=== PATIENT | female | born 1945 | race Caucasian/White ===

== ENCOUNTER 2019-08-27 10:38 | Inpatient (IN) | payer MEDICARE, MEDICAID ==
[~2019-08-27] VITALS: Ht 160 cm; Wt 104.3 kg
--- NOTE | 2019-08-27 11:50 | NUR ---
Patient was a direct admit. Vital signs obtained, placed on tele. 2 RN skin check completed. Pt. seen by Dr. Childers and Dr. Alan Wakefield. Med rec completed. Page PICC nurse to place PIV as nursing was unsuccessful at placing. Pt. resting comfortably with no complaints at this time.
--- NOTE | 2019-08-27 11:53 | NUR ---
Sent Dr. Childers a page: [id number] Margaret [place]. Patient was just directly admitted to floor. Melissa DAVIS [id number]
[2019-08-27] MEDS ORDERED: DULO-31 PO (13:20)
[2019-08-27] MEDS ORDERED: MELA10CA2 PO (13:20)
[2019-08-27] MEDS ORDERED: GABA300C PO (13:20)
[2019-08-27] MEDS ORDERED: LORA-660 PO (13:20)
[2019-08-27] MEDS ORDERED: ASPI81TA52 PO (13:20)
[2019-08-27] MEDS ORDERED: GLIP5TAB13 PO (13:20)
[2019-08-27] MEDS ORDERED: TOPI200T16 PO (13:20)
[2019-08-27] MEDS ORDERED: ENAL2.5T40 PO (13:20)
[2019-08-27] MEDS ORDERED: MELO-102 PO (13:20)
[2019-08-27] MEDS ORDERED: PRAZ2CAP2 PO (13:20)
[2019-08-27] MEDS ORDERED: LEVE750T66 PO (13:20)
[2019-08-27] MEDS ORDERED: POTA10TA19 PO (13:20)
[2019-08-27] MEDS ORDERED: HYDR-4383 PO (13:20)
[2019-08-27] MEDS ORDERED: FURO-150 PO (13:20)
[2019-08-27] MEDS ORDERED: ALEN10TA27 PO (13:20)
[2019-08-27] MEDS ORDERED: FENO48TA9 PO (13:20)
[2019-08-27] MEDS ORDERED: SIMV-42 PO (13:20)
[2019-08-27 13:23] VITALS: BP 103/58
[2019-08-27] MEDS ORDERED: NORMAL SALINE IV SCH (13:30)
[2019-08-27] MEDS ORDERED: CefTRIAXone 2gm/D5W 50ml 50 ML IV SCH (13:30)
[2019-08-27] MEDS ORDERED: CEFTRIAXONE IV SCH (13:30)
[2019-08-27] MEDS ORDERED: vancomycin/NS 1 GM ADD-VANTAGE 250 ML IV ONE ×2 (13:40→15:30)
[2019-08-27] MEDS ORDERED: acetaminophen 325mg tablet PO PRN ×2 (14:00)
[2019-08-27] MEDS ORDERED: magnesium 4gm in 100ml NS 100 ML IV PRN (14:00)
[2019-08-27] MEDS ORDERED: dextrose ORAL solution 15 GM/59 ML bottle PO PRN ×2 (14:00)
[2019-08-27] MEDS ORDERED: MESSAGE TO PHARMACY PO ONE (14:00)
[2019-08-27] MEDS ORDERED: diphenhydrAMINE 25mg capsule PO PRN (14:00)
[2019-08-27] MEDS ORDERED: potassium Cl 20 mEq SR tablet PO PRN ×2 (14:00)
[2019-08-27] MEDS ORDERED: magnesium hydroxide 30ml (MOM) UD suspension PO PRN (14:00)
[2019-08-27] MEDS ORDERED: morphine 2 MG/ML inj. syringe IV PRN ×2 (14:00)
[2019-08-27] MEDS ORDERED: bisacodyl 10mg suppository rectal RC PRN (14:00)
[2019-08-27] MEDS ORDERED: potassium CL 10mEq/100ml bag 100 ML IV PRN ×2 (14:00)
[2019-08-27] MEDS ORDERED: magnesium Cl slow-release 64mg tablet PO PRN (14:00)
[2019-08-27] MEDS ORDERED: dextrose 50%-water 50ml dispensing syringe IV PRN ×2 (14:00)
[2019-08-27] MEDS ORDERED: glucagon, human recombinant 1mg kit SUBCUT PRN (14:00)
[2019-08-27] MEDS ORDERED: mag hydrox/Alum hydrox/simeth 30ml oral suspension PO PRN (14:00)
[2019-08-27] MEDS ORDERED: magnesium 2GM in 50ml NS 50 ML IV PRN (14:00)
[2019-08-27] MEDS ORDERED: ondansetron/PF 4mg/2ml inj IV PRN (14:00)
[2019-08-27] MEDS ORDERED: HYDROcodone/acetaminophen 5mg/325mg tablet PO PRN (14:00)
[2019-08-27] MEDS ORDERED: acetaminophen 650mg rectal suppository RC PRN (14:00)
[2019-08-27] MEDS ORDERED: insulin Lispro (HumaLOG) vial - multi-dose SQ SCH (14:00)
--- NOTE | 2019-08-27 14:00 | NUR ---
Glucose was 68 in the chem panel, Pt. provided with lunch. Pt. had not eaten all day prior to admission. Pt. is asymptomatic. New orders for accu checks AC/HS.
[2019-08-27 14:28] LABS: BASOPHILS # (AUTO) 0.1 X10'3 (0-0.2); BASOPHILS % (AUTO) 0.9 % (0-1); EOSINOPHILS # (AUTO) 0.2 X10'3 (0-0.9); EOSINOPHILS % (AUTO) 4.2 % (0-6); HEMATOCRIT 32.8 % (35.0-45.0); HEMOGLOBIN 10.8 g/dl (12.0-16.0); LYMPHOCYTES # (AUTO) 1.8 X10'3 (1.1-4.8); LYMPHOCYTES % (AUTO) 31.3 % (21-51); MEAN CORPUSCULAR HEMOGLOBIN 31.2 PG (27.0-31.0); MEAN CORPUSCULAR VOLUME 94.5 FL (78-98); MEAN PLATELET VOLUME 7.5 FL (7.4-10.4); MONOCYTES # (AUTO) 0.6 X10'3 (0-0.9); MONOCYTES % (AUTO) 9.7 % (2-12); NEUTROPHILS # (AUTO) 3.1 X10'3 (1.8-7.7); NEUTROPHILS % (AUTO) 53.9 % (42-75); PLATELET COUNT 179 X10'3 (140-440); RED BLOOD COUNT 3.47 X10'6 (4.20-5.60); RED CELL DISTRIBUTION WIDTH 12.7 % (11.5-14.5); WHITE BLOOD COUNT 5.8 X10'3 (4.5-11.0)
[2019-08-27 14:30] LABS: HEMOGLOBIN A1C 5.8 % (4.5-6.2)
[2019-08-27 14:34] LABS: PARTIAL THROMBOPLASTIN TIME 31 SECONDS (22-32)
[2019-08-27] MEDS: normal saline 1000ml 1,000 ML IV SCH (14:43)
--- NOTE | 2019-08-27 14:43 | NUR ---
Blood cultures have been obtained, therefore the antibiotics have been started. Monitoring patient closely as she has several allergies to antibiotics.
[2019-08-27 14:46] LABS: ALANINE AMINOTRANSFERASE 14 U/L (12-78); ALBUMIN 3.5 G/DL (3.4-5.0); ALBUMIN/GLOBULIN RATIO 1.1 (1.1-1.5); ALKALINE PHOSPHATASE 40 IU/L (46-116); ANION GAP 6 (8-16); ASPARTATE AMINO TRANSFERASE 11 U/L (10-37); BILIRUBIN,TOTAL 0.3 MG/DL (0.1-1.0); BLOOD UREA NITROGEN 30 MG/DL (7-18); BUN/CREATININE RATIO 22.9 (6.6-38.0); CHLORIDE 108 MMOL/L (99-107); CREATININE 1.31 MG/DL (0.40-0.90); GLUCOSE 68 MG/DL (70-104); MAGNESIUM 2.1 MG/DL (1.5-2.4); PHOSPHORUS 4.5 MG/DL (2.3-4.5); POTASSIUM 3.8 MMOL/L (3.5-5.1); SODIUM 140 MMOL/L (135-145); TOTAL CARBON DIOXIDE 25.6 MMOL/L (24-32); TOTAL PROTEIN 6.7 G/DL (6.4-8.2); eGFR 40 ML/MIN
[2019-08-27 15:00] VITALS: BP 136/60
[2019-08-27 15:55] LABS: COLOR,URINE STRAW (Yellow); GLUCOSE, URINE NEGATIVE (Neg); KETONES,URINE NEGATIVE (Neg); LEUKOCYTE ESTERASE ,URINE SMALL (Neg); NITRITES, URINE NEGATIVE (Neg); OCCULT BLOOD,URINE NEGATIVE (Neg); PROTEIN,URINE NEGATIVE (Neg); UROBILINOGEN,URINE 0.2 E.U/dL (0.2-1.0)
[2019-08-27 15:56] LABS: UA COLLECTION TYPE CLN CATCH MIDSTREAM
[2019-08-27 16:08] LABS: CLARITY,URINE SLIGHTLY CLOUDY (Clear); SQUAMOUS EPITHELIAL CELL,UR MODERATE /LPF (FEW)
[2019-08-27 16:09] LABS: MUCUS STRANDS FEW /LPF (Neg); TRANSITIONAL EPI CELLS,URINE FEW /HPF
[2019-08-27 16:10] LABS: BACTERIA,URINE 4+ /HPF (Neg); RBC,URINE NONE SEEN /HPF (0-2)
[2019-08-27 18:00] VITALS: BP 134/67
--- NOTE | 2019-08-27 18:28 | NUR ---
Problems reprioritized. Patient report given, questions answered & plan of care reviewed with lu DAVIS. Pt. is eating dinner, thanked staff for the care provided.
--- NOTE | 2019-08-27 18:46 | NUR ---
Patient in room PCU 3025. I have received report from Eunice DAVIS and had the opportunity to ask questions and assume patient care.
[2019-08-27] MEDS: K and/or MAG REPLACEMENT MC SCH (20:00)
[2019-08-27] MEDS: topiramate 100mg tablet PO SCH (20:54)
[2019-08-27] MEDS: levetiracetam 250mg tablet PO SCH (20:55)
[2019-08-27] MEDS: gabapentin 300mg capsule PO SCH (20:55)
[2019-08-27] MEDS: atorvastatin 10mg tablet PO SCH (20:55)
[2019-08-27] MEDS: prazosin 1mg capsule PO SCH (20:55)
[2019-08-27] MEDS: Melatonin 3mg tablet PO SCH (20:56)
[2019-08-27] MEDS: heparin, porcine 5000 units/ml vial SQ SCH (20:56)
[2019-08-27] MEDS: insulin glargine (Lantus) pen - multi-dose SQ SCH (21:00)
[2019-08-27] MEDS: HYDROcodone/acetaminophen 10/325mg tab PO PRN (21:12)
[2019-08-27 22:00] VITALS: BP 119/52
[2019-08-28 02:00] VITALS: BP 107/45
[2019-08-28 05:29] LABS: BASOPHILS # (AUTO) 0.1 X10'3 (0-0.2); BASOPHILS % (AUTO) 1.1 % (0-1); EOSINOPHILS # (AUTO) 0.3 X10'3 (0-0.9); EOSINOPHILS % (AUTO) 5.6 % (0-6); HEMATOCRIT 30.2 % (35.0-45.0); HEMOGLOBIN 10.1 g/dl (12.0-16.0); LYMPHOCYTES # (AUTO) 1.7 X10'3 (1.1-4.8); LYMPHOCYTES % (AUTO) 34.8 % (21-51); MEAN CORPUSCULAR HEMOGLOBIN 30.9 PG (27.0-31.0); MEAN CORPUSCULAR HGB CONC 33.4 g/dL (33.0-36.5); MEAN CORPUSCULAR VOLUME 92.6 FL (78-98); MEAN PLATELET VOLUME 7.5 FL (7.4-10.4); MONOCYTES # (AUTO) 0.5 X10'3 (0-0.9); MONOCYTES % (AUTO) 10.7 % (2-12); NEUTROPHILS # (AUTO) 2.3 X10'3 (1.8-7.7); NEUTROPHILS % (AUTO) 47.8 % (42-75); PLATELET COUNT 175 X10'3 (140-440); RED BLOOD COUNT 3.26 X10'6 (4.20-5.60); RED CELL DISTRIBUTION WIDTH 13.1 % (11.5-14.5); WHITE BLOOD COUNT 4.9 X10'3 (4.5-11.0)
[2019-08-28 05:50] LABS: ALANINE AMINOTRANSFERASE 13 U/L (12-78); ALBUMIN 3.1 G/DL (3.4-5.0); ALBUMIN/GLOBULIN RATIO 1.1 (1.1-1.5); ALKALINE PHOSPHATASE 39 IU/L (46-116); ANION GAP 8 (8-16); ASPARTATE AMINO TRANSFERASE 12 U/L (10-37); BILIRUBIN,TOTAL 0.2 MG/DL (0.1-1.0); CALCIUM 8.9 MG/DL (8.5-10.1); CHLORIDE 113 MMOL/L (99-107); CHOL/HDL RATIO 2.7 (0.00-4.99); CHOLESTEROL 138 MG/DL (0-200); CREATININE 1.28 MG/DL (0.40-0.90); GLUCOSE 97 MG/DL (70-104); HDL CHOLESTEROL 52 MG/DL (35-60); LDL CHOLESTEROL 55 MG/DL (50-100); MAGNESIUM 2.3 MG/DL (1.5-2.4); PHOSPHORUS 4.7 MG/DL (2.3-4.5); POTASSIUM 3.9 MMOL/L (3.5-5.1); SODIUM 145 MMOL/L (135-145); TOTAL CARBON DIOXIDE 24.5 MMOL/L (24-32); TOTAL PROTEIN 5.9 G/DL (6.4-8.2); TRIGLYCERIDES 150 MG/DL (20-135); eGFR 41 ML/MIN
[2019-08-28 06:06] LABS: BLOOD UREA NITROGEN 29 MG/DL (7-18); BUN/CREATININE RATIO 22.7 (6.6-38.0)
--- NOTE | 2019-08-28 06:14 | NUR ---
Patient in room PCU 3025. I have received report from RYAN Roberts and had the opportunity to ask questions and assume patient care.
--- NOTE | 2019-08-28 06:15 | NUR ---
Problems reprioritized. Patient report given, questions answered & plan of care reviewed with Shu DAVIS.
[2019-08-28 07:00] VITALS: BP 118/55
[2019-08-28] MEDS: heparin, porcine 5000 units/ml vial SQ SCH ×2 (07:58→20:39)
[2019-08-28] MEDS: CefTRIAXone inj 2,000 MG in normal saline 100ml IV soln 100 ML IV SCH (07:58)
[2019-08-28] MEDS: fenofibrate 48mg tablet PO SCH (07:59)
[2019-08-28] MEDS: duloxetine 30mg CAPSULE.DR PO SCH (07:59)
[2019-08-28] MEDS: loratadine 10mg tablet PO SCH (07:59)
[2019-08-28] MEDS: aspirin 81mg tablet.DR PO SCH (07:59)
[2019-08-28] MEDS: lisinopril 5mg tablet PO SCH (07:59)
[2019-08-28] MEDS: levetiracetam 250mg tablet PO SCH ×2 (07:59→20:37)
[2019-08-28] MEDS ORDERED: non-formulary drug (Alendronate Sodium 1 TAB) PO SCH (08:00)
[2019-08-28] MEDS ORDERED: CefTRIAXone 2gm/D5W 50ml 50 ML IV SCH (08:00)
[2019-08-28] MEDS: topiramate 100mg tablet PO SCH ×2 (08:01→20:36)
[2019-08-28] MEDS: furosemide 20MG tablet PO SCH (08:01)
[2019-08-28] MEDS: K and/or MAG REPLACEMENT MC SCH ×2 (08:01→20:40)
--- NOTE | 2019-08-28 10:11 | NUR ---
Patient in room PCU 3025. I have received report from RYAN Ireland and had the opportunity to ask questions and assume patient care.
--- NOTE | 2019-08-28 10:34 | NUR ---
Problems reprioritized. Patient report given, questions answered & plan of care reviewed with RYAN Mae.
[2019-08-28 11:00] VITALS: BP 123/44
[2019-08-28] MEDS: normal saline 1000ml 1,000 ML IV SCH (13:19)
[2019-08-28] MEDS: HYDROcodone/acetaminophen 10/325mg tab PO PRN (13:19)
[2019-08-28 15:00] VITALS: BP 128/55
[2019-08-28] MEDS: VANCOMYCIN 1,500MG inj. 1,500 MG in normal saline 500ml IV soln 500 ML IV SCH (16:18)
[2019-08-28 18:00] VITALS: BP 133/57
--- NOTE | 2019-08-28 18:30 | NUR ---
Patient in room PCU 3025. I have received report from Carmelita DAVIS and had the opportunity to ask questions and assume patient care.
--- NOTE | 2019-08-28 18:52 | NUR ---
Problems reprioritized. Patient report given, questions answered & plan of care reviewed with RYAN Roberts.
[2019-08-28] MEDS: gabapentin 300mg capsule PO SCH (20:36)
[2019-08-28] MEDS: prazosin 1mg capsule PO SCH (20:36)
[2019-08-28] MEDS: atorvastatin 10mg tablet PO SCH (20:36)
[2019-08-28] MEDS: Melatonin 3mg tablet PO SCH (20:37)
[2019-08-28] MEDS: insulin glargine (Lantus) pen - multi-dose SQ SCH (21:00)
[2019-08-28 22:00] VITALS: BP 114/50
[2019-08-29 02:00] VITALS: BP 123/54
[2019-08-29] MEDS: HYDROcodone/acetaminophen 10/325mg tab PO PRN ×2 (02:38→22:50)
[2019-08-29] MEDS: normal saline 1000ml 1,000 ML IV SCH ×2 (05:34→10:40)
[2019-08-29 05:39] LABS: BASOPHILS # (AUTO) 0.1 X10'3 (0-0.2); EOSINOPHILS # (AUTO) 0.2 X10'3 (0-0.9); EOSINOPHILS % (AUTO) 4.8 % (0-6); HEMATOCRIT 29.8 % (35.0-45.0); HEMOGLOBIN 9.9 g/dl (12.0-16.0); LYMPHOCYTES # (AUTO) 1.5 X10'3 (1.1-4.8); LYMPHOCYTES % (AUTO) 29.9 % (21-51); MEAN CORPUSCULAR HEMOGLOBIN 31.1 PG (27.0-31.0); MEAN CORPUSCULAR HGB CONC 33.3 g/dL (33.0-36.5); MEAN CORPUSCULAR VOLUME 93.4 FL (78-98); MEAN PLATELET VOLUME 7.7 FL (7.4-10.4); MONOCYTES # (AUTO) 0.6 X10'3 (0-0.9); MONOCYTES % (AUTO) 11.3 % (2-12); NEUTROPHILS # (AUTO) 2.7 X10'3 (1.8-7.7); PLATELET COUNT 159 X10'3 (140-440); RED BLOOD COUNT 3.19 X10'6 (4.20-5.60); RED CELL DISTRIBUTION WIDTH 12.8 % (11.5-14.5); WHITE BLOOD COUNT 5.2 X10'3 (4.5-11.0)
[2019-08-29 05:59] LABS: ALANINE AMINOTRANSFERASE 12 U/L (12-78); ALBUMIN 3.1 G/DL (3.4-5.0); ALBUMIN/GLOBULIN RATIO 1.1 (1.1-1.5); ALKALINE PHOSPHATASE 33 IU/L (46-116); ANION GAP 8 (8-16); ASPARTATE AMINO TRANSFERASE 18 U/L (10-37); BILIRUBIN,TOTAL 0.2 MG/DL (0.1-1.0); BLOOD UREA NITROGEN 26 MG/DL (7-18); CALCIUM 8.7 MG/DL (8.5-10.1); CHLORIDE 111 MMOL/L (99-107); CREATININE 1.13 MG/DL (0.40-0.90); GLUCOSE 97 MG/DL (70-104); MAGNESIUM 2.2 MG/DL (1.5-2.4); PHOSPHORUS 3.9 MG/DL (2.3-4.5); POTASSIUM 3.7 MMOL/L (3.5-5.1); SODIUM 143 MMOL/L (135-145); TOTAL CARBON DIOXIDE 24.5 MMOL/L (24-32); eGFR 47 ML/MIN
--- NOTE | 2019-08-29 06:27 | NUR ---
Patient in room PCU 3025. I have received report from RYAN Fuentes and had the opportunity to ask questions and assume patient care. Patient asleep in bed and in no acute distress.
--- NOTE | 2019-08-29 06:30 | NUR ---
Problems reprioritized. Patient report given, questions answered & plan of care reviewed with Nicolette DAVIS.
[2019-08-29 07:00] VITALS: BP 103/59
[2019-08-29] MEDS: K and/or MAG REPLACEMENT MC SCH ×2 (08:00→20:00)
[2019-08-29] MEDS: CefTRIAXone inj 2,000 MG in normal saline 100ml IV soln 100 ML IV SCH (08:14)
[2019-08-29] MEDS: levetiracetam 250mg tablet PO SCH ×2 (08:15→20:21)
[2019-08-29] MEDS: duloxetine 30mg CAPSULE.DR PO SCH (08:15)
[2019-08-29] MEDS: lisinopril 5mg tablet PO SCH (08:16)
[2019-08-29] MEDS: topiramate 100mg tablet PO SCH ×2 (08:16→20:21)
[2019-08-29] MEDS: loratadine 10mg tablet PO SCH (08:17)
[2019-08-29] MEDS: fenofibrate 48mg tablet PO SCH (08:17)
[2019-08-29] MEDS: aspirin 81mg tablet.DR PO SCH (08:17)
[2019-08-29] MEDS: furosemide 20MG tablet PO SCH (08:18)
[2019-08-29] MEDS: heparin, porcine 5000 units/ml vial SQ SCH ×2 (08:19→20:22)
[2019-08-29 11:00] VITALS: BP 129/69
[2019-08-29 15:00] VITALS: BP 114/51
[2019-08-29] MEDS: VANCOMYCIN 1,500MG inj. 1,500 MG in normal saline 500ml IV soln 500 ML IV SCH (16:20)
[2019-08-29 18:00] VITALS: BP 130/57
--- NOTE | 2019-08-29 18:14 | NUR ---
Problems reprioritized. Patient report given, questions answered & plan of care reviewed with RYAN Mcgarry. Patient stable at transfer of care.
--- NOTE | 2019-08-29 18:30 | NUR ---
Patient in room PCU 3025. I have received report from Nicolette DAVIS and had the opportunity to ask questions and assume patient care.
[2019-08-29] MEDS: gabapentin 300mg capsule PO SCH (20:20)
[2019-08-29] MEDS: prazosin 1mg capsule PO SCH (20:21)
[2019-08-29] MEDS: atorvastatin 10mg tablet PO SCH (20:21)
[2019-08-29] MEDS: Melatonin 3mg tablet PO SCH (20:21)
[2019-08-29] MEDS: insulin glargine (Lantus) pen - multi-dose SQ SCH (21:00)
[2019-08-29 22:00] VITALS: BP 111/51
[2019-08-30 02:00] VITALS: BP 98/59
[2019-08-30 06:00] VITALS: BP 106/54
--- NOTE | 2019-08-30 06:05 | NUR ---
Patient in room PCU 3025. I have received report from Malgorzata DAVIS and had the opportunity to ask questions and assume patient care.
[2019-08-30 06:07] LABS: BASOPHILS # (AUTO) 0.1 X10'3 (0-0.2); BASOPHILS % (AUTO) 1.1 % (0-1); EOSINOPHILS # (AUTO) 0.2 X10'3 (0-0.9); EOSINOPHILS % (AUTO) 4.9 % (0-6); HEMATOCRIT 29.7 % (35.0-45.0); HEMOGLOBIN 9.8 g/dl (12.0-16.0); LYMPHOCYTES # (AUTO) 1.8 X10'3 (1.1-4.8); LYMPHOCYTES % (AUTO) 38.4 % (21-51); MEAN CORPUSCULAR HEMOGLOBIN 31.1 PG (27.0-31.0); MEAN CORPUSCULAR HGB CONC 33.1 g/dL (33.0-36.5); MEAN CORPUSCULAR VOLUME 94.1 FL (78-98); MEAN PLATELET VOLUME 7.6 FL (7.4-10.4); MONOCYTES # (AUTO) 0.6 X10'3 (0-0.9); MONOCYTES % (AUTO) 11.8 % (2-12); NEUTROPHILS # (AUTO) 2.1 X10'3 (1.8-7.7); NEUTROPHILS % (AUTO) 43.8 % (42-75); PLATELET COUNT 156 X10'3 (140-440); RED BLOOD COUNT 3.15 X10'6 (4.20-5.60); WHITE BLOOD COUNT 4.7 X10'3 (4.5-11.0)
[2019-08-30 06:17] LABS: ALANINE AMINOTRANSFERASE 14 U/L (12-78); ALBUMIN/GLOBULIN RATIO 1.1 (1.1-1.5); ALKALINE PHOSPHATASE 30 IU/L (46-116); ANION GAP 10 (8-16); ASPARTATE AMINO TRANSFERASE 23 U/L (10-37); BILIRUBIN,TOTAL 0.3 MG/DL (0.1-1.0); BLOOD UREA NITROGEN 20 MG/DL (7-18); BUN/CREATININE RATIO 18.2 (6.6-38.0); CALCIUM 8.7 MG/DL (8.5-10.1); CHLORIDE 111 MMOL/L (99-107); GLUCOSE 86 MG/DL (70-104); MAGNESIUM 2.2 MG/DL (1.5-2.4); PHOSPHORUS 3.8 MG/DL (2.3-4.5); POTASSIUM 3.6 MMOL/L (3.5-5.1); SODIUM 145 MMOL/L (135-145); TOTAL CARBON DIOXIDE 23.8 MMOL/L (24-32); TOTAL PROTEIN 5.8 G/DL (6.4-8.2); eGFR 49 ML/MIN
--- NOTE | 2019-08-30 06:23 | NUR ---
Problems reprioritized. Patient report given, questions answered & plan of care reviewed with Saad DAVIS.
[2019-08-30] MEDS: K and/or MAG REPLACEMENT MC SCH ×2 (08:00→20:00)
[2019-08-30] MEDS: CefTRIAXone inj 2,000 MG in normal saline 100ml IV soln 100 ML IV SCH (08:22)
[2019-08-30] MEDS: duloxetine 30mg CAPSULE.DR PO SCH (08:23)
[2019-08-30] MEDS: topiramate 100mg tablet PO SCH ×2 (08:23→19:57)
[2019-08-30] MEDS: lisinopril 5mg tablet PO SCH (08:23)
[2019-08-30] MEDS: loratadine 10mg tablet PO SCH (08:23)
[2019-08-30] MEDS: heparin, porcine 5000 units/ml vial SQ SCH ×2 (08:23→19:58)
[2019-08-30] MEDS: levetiracetam 250mg tablet PO SCH ×2 (08:24→19:57)
[2019-08-30] MEDS: fenofibrate 48mg tablet PO SCH (08:24)
[2019-08-30] MEDS: furosemide 20MG tablet PO SCH (08:25)
[2019-08-30] MEDS: aspirin 81mg tablet.DR PO SCH (08:25)
[2019-08-30 15:00] VITALS: BP 128/60
--- NOTE | 2019-08-30 15:15 | NUR ---
PICC insertion in right upper arm (Basilic), REF [id number], LOT [id number], Exp. 05/13/20
[2019-08-30] MEDS: VANCOMYCIN 1,500MG inj. 1,500 MG in normal saline 250ml IV soln 300 ML IV SCH (16:22)
[2019-08-30 18:00] VITALS: BP 157/64
--- NOTE | 2019-08-30 18:30 | NUR ---
Problems reprioritized. Patient report given, questions answered & plan of care reviewed with Dalia DAVIS.
[2019-08-30] MEDS: atorvastatin 10mg tablet PO SCH (20:04)
[2019-08-30] MEDS: prazosin 1mg capsule PO SCH (20:05)
[2019-08-30] MEDS: Melatonin 3mg tablet PO SCH (20:05)
[2019-08-30] MEDS: gabapentin 300mg capsule PO SCH (20:05)
[2019-08-30] MEDS: insulin glargine (Lantus) pen - multi-dose SQ SCH (21:00)
[2019-08-30] MEDS: HYDROcodone/acetaminophen 10/325mg tab PO PRN (21:42)
[2019-08-30] MEDS: normal saline 1000ml 1,000 ML IV SCH (21:56)
[2019-08-30 22:00] VITALS: BP 108/50
[2019-08-31 02:00] VITALS: BP 111/53
[2019-08-31 06:00] VITALS: BP 126/62
--- NOTE | 2019-08-31 06:19 | NUR ---
Problems reprioritized. Patient report given, questions answered & plan of care reviewed with RYAN Arevalo.
--- NOTE | 2019-08-31 06:20 | NUR ---
Patient in room PCU 3025. I have received report from Dalia DAVIS and had the opportunity to ask questions and assume patient care.
[2019-08-31] MEDS: fenofibrate 48mg tablet PO SCH (07:18)
[2019-08-31] MEDS: loratadine 10mg tablet PO SCH (07:18)
[2019-08-31] MEDS: CefTRIAXone inj 2,000 MG in normal saline 100ml IV soln 100 ML IV SCH (07:18)
[2019-08-31] MEDS: lisinopril 5mg tablet PO SCH (07:18)
[2019-08-31] MEDS: duloxetine 30mg CAPSULE.DR PO SCH (07:18)
[2019-08-31] MEDS: furosemide 20MG tablet PO SCH (07:18)
[2019-08-31] MEDS: topiramate 100mg tablet PO SCH (07:18)
[2019-08-31] MEDS: levetiracetam 250mg tablet PO SCH (07:18)
[2019-08-31] MEDS: aspirin 81mg tablet.DR PO SCH (07:18)
[2019-08-31] MEDS: heparin, porcine 5000 units/ml vial SQ SCH (07:19)
[2019-08-31 07:48] LABS: BASOPHILS # (AUTO) 0.1 X10'3 (0-0.2); BASOPHILS % (AUTO) 1.2 % (0-1); EOSINOPHILS # (AUTO) 0.2 X10'3 (0-0.9); EOSINOPHILS % (AUTO) 4.7 % (0-6); HEMATOCRIT 30.5 % (35.0-45.0); HEMOGLOBIN 10.2 g/dl (12.0-16.0); LYMPHOCYTES # (AUTO) 1.6 X10'3 (1.1-4.8); LYMPHOCYTES % (AUTO) 34.3 % (21-51); MEAN CORPUSCULAR HEMOGLOBIN 31.5 PG (27.0-31.0); MEAN CORPUSCULAR HGB CONC 33.5 g/dL (33.0-36.5); MEAN CORPUSCULAR VOLUME 93.9 FL (78-98); MEAN PLATELET VOLUME 7.6 FL (7.4-10.4); MONOCYTES # (AUTO) 0.5 X10'3 (0-0.9); MONOCYTES % (AUTO) 11.3 % (2-12); NEUTROPHILS # (AUTO) 2.2 X10'3 (1.8-7.7); NEUTROPHILS % (AUTO) 48.5 % (42-75); PLATELET COUNT 167 X10'3 (140-440); RED BLOOD COUNT 3.25 X10'6 (4.20-5.60); RED CELL DISTRIBUTION WIDTH 12.9 % (11.5-14.5); WHITE BLOOD COUNT 4.6 X10'3 (4.5-11.0)
[2019-08-31 07:58] LABS: ALANINE AMINOTRANSFERASE 20 U/L (12-78); ALBUMIN 3.1 G/DL (3.4-5.0); ALKALINE PHOSPHATASE 36 IU/L (46-116); ANION GAP 9 (8-16); ASPARTATE AMINO TRANSFERASE 20 U/L (10-37); BILIRUBIN,TOTAL 0.3 MG/DL (0.1-1.0); BLOOD UREA NITROGEN 21 MG/DL (7-18); BUN/CREATININE RATIO 19.4 (6.6-38.0); CALCIUM 8.6 MG/DL (8.5-10.1); CHLORIDE 111 MMOL/L (99-107); CREATININE 1.08 MG/DL (0.40-0.90); GLUCOSE 104 MG/DL (70-104); MAGNESIUM 2.2 MG/DL (1.5-2.4); POTASSIUM 3.7 MMOL/L (3.5-5.1); SODIUM 143 MMOL/L (135-145); TOTAL CARBON DIOXIDE 23.2 MMOL/L (24-32); TOTAL PROTEIN 6.1 G/DL (6.4-8.2); eGFR 50 ML/MIN
[2019-08-31] MEDS: K and/or MAG REPLACEMENT MC SCH (08:00)
[2019-08-31 11:00] VITALS: BP 124/59
--- NOTE | 2019-08-31 12:55 | NUR ---
pt is stable for discharge per md orders, discharge instructions reviewed w/ pt all questions answered, no new med prescriptions on discharge, tele monitor removed and returned, piv dc'ed, cannula intact dry dressing placed, pt will be discharging to home with sister after [facility] does teaching w/ pt and family member, scheduled to do training at 1400.
[2019-08-31] MEDS ORDERED: VANCOMYCIN LEVEL IV ONE (15:30)
[2019-08-31] MEDS: VANCOMYCIN 1,500MG inj. 1,500 MG in normal saline 250ml IV soln 300 ML IV SCH (16:00)
--- NOTE | 2019-08-31 16:26 | NUR ---
1600 vancomycin administered by [facility] infusion nurse w/ sister at bedside
--- NOTE | 2019-08-31 17:30 | NUR ---
infusion training completed from [facility], pt discharges to home w/ sister in private vehicle at 1730, all belongings w/ pt at time of discharge
[2019-08-31] MEDS ORDERED: lactobacillus rhamnosus 10,000 MMU CELLS/CAPSULE PO SCH (20:00)
--- NOTE | 2019-09-03 08:52 | NUR ---
Case management DC follow up: LM/VM re post DC status, questions, concerns
== END 2019-08-31 17:25 | disposition home health service (06) | DRG 307 ==
LOC: UNDOADMIN 11:18 → PCU 3S 11:18
PROVIDERS: ADMIT Family Medicine; ATTEND Family Medicine
PROC: 02HV33Z Insertion of Infusion Device into Superior Vena Cava, Percutaneous Approach (ICD-10-PCS; principal; 2019-08-30)
PROC: 4A02X4A Measurement of Cardiac Electrical Activity, Guidance, External Approach (ICD-10-PCS; 2019-08-30)
DX: I05.9 Rheumatic mitral valve disease, unspecified (principal); N39.0 Urinary tract infection, site not specified; Z68.41 Body mass index [BMI] 40.0-44.9, adult; E11.9 Type 2 diabetes mellitus without complications; I10 Essential (primary) hypertension; E78.1 Pure hyperglyceridemia; F41.9 Anxiety disorder, unspecified; F32.9 Major depressive disorder, single episode, unspecified; N18.9 Chronic kidney disease, unspecified; E04.1 Nontoxic single thyroid nodule; M81.0 Age-related osteoporosis without current pathological fracture; E78.5 Hyperlipidemia, unspecified; E66.9 Obesity, unspecified; B96.20 Unspecified Escherichia coli [E. coli] as the cause of diseases classified elsewhere; M19.90 Unspecified osteoarthritis, unspecified site; G40.909 Epilepsy, unspecified, not intractable, without status epilepticus; G89.29 Other chronic pain; G47.00 Insomnia, unspecified; Z79.83 Long term (current) use of bisphosphonates; Z79.899 Other long term (current) drug therapy; Z82.49 Family history of ischemic heart disease and other diseases of the circulatory system; Z87.891 Personal history of nicotine dependence
CPT/HCPCS: 36415; 36573; 71045; 76937; 80053; 80061; 80202; 81001; 82948; 83036; 83735; 83880; 84100; 84443; 85025; 85610; 85730; 86622; 86638; 87040; 87077; 87081; 87088; 87186; G0378; J0696; J1644; J1815; J2405; J3370; J7030; J7040; J7050

== ENCOUNTER 2019-12-26 14:30 | Outpatient (CLI) | payer MEDICARE, MEDICAID ==
[~2019-12-26 14:30] MED LIST: ALEN10TA27 PO; ASPI81TA52 PO; DULO-31 PO; ENAL2.5T40 PO; FENO48TA9 PO; FURO-150 PO; GABA300C PO; GLIP5TAB13 PO; HYDR-4383 PO; LEVE750T66 PO; LORA-660 PO; MELA10CA2 PO; POTA10TA19 PO; PRAZ2CAP2 PO; SIMV-42 PO; TOPI200T16 PO
== END 2019-12-26 23:59 | disposition home or self-care (01) ==
LOC: CARD DIAG 14:30
PROVIDERS: ATTEND Internal Medicine Cardiovascular Disease
DX: I08.8 Other rheumatic multiple valve diseases (principal); I34.0 Nonrheumatic mitral (valve) insufficiency
CPT/HCPCS: 93306

== ENCOUNTER 2022-11-01 07:30 | Inpatient (IN) | payer MEDICARE, MEDICAID ==
[2022-10-25 14:45] LABS: BASOPHILS # (AUTO) 0.1 X10'3 (0-0.2); BASOPHILS % (AUTO) 0.9 % (0-1); EOSINOPHILS # (AUTO) 0.3 X10'3 (0-0.9); EOSINOPHILS % (AUTO) 4.5 % (0-6); LYMPHOCYTES # (AUTO) 1.4 X10'3 (1.1-4.8); LYMPHOCYTES % (AUTO) 23.2 % (21-51); MEAN CORPUSCULAR HEMOGLOBIN 30.2 PG (27.0-31.0); MEAN CORPUSCULAR HGB CONC 32.9 g/dL (33.0-36.5); MEAN CORPUSCULAR VOLUME 91.9 FL (78-98); MEAN PLATELET VOLUME 7.2 FL (7.4-10.4); MONOCYTES # (AUTO) 0.6 X10'3 (0-0.9); MONOCYTES % (AUTO) 10.2 % (2-12); NEUTROPHILS # (AUTO) 3.8 X10'3 (1.8-7.7); NEUTROPHILS % (AUTO) 61.2 % (42-75); PRE OP HEMATOCRIT 33.6 % (35.0-45.0); PRE OP HEMOGLOBIN 11.1 g/dL (12.0-16.0); PRE OP PLATELET COUNT 183 X10'3 (140-440); PRE OP WHITE BLOOD COUNT 6.2 10'3 (4.8-10.8); RED BLOOD COUNT 3.66 X10'6 (4.20-5.60); RED CELL DISTRIBUTION WIDTH 14.3 % (11.5-14.5)
[2022-10-25 14:51] LABS: ALBUMIN 3.4 G/DL (3.4-5.0); ALBUMIN/GLOBULIN RATIO 1.1 (1.1-1.5); ALKALINE PHOSPHATASE 76 IU/L (46-116); BLOOD UREA NITROGEN 21 MG/DL (7-18); BUN/CREATININE RATIO 21.9 (10.0-20.0); CALCIUM 8.9 MG/DL (8.5-10.1); CHLORIDE 105 MMOL/L (99-107); CREATININE 0.96 MG/DL (0.40-0.90); PRE OP ALT 12 U/L (30-65); PRE OP ANION GAP 8 (8-16); PRE OP BILIRUB, TOTAL 0.2 MG/DL (0.0-1.0); PRE OP GLUCOSE 122 MG/DL (70-104); PRE OP POTASSIUM 3.9 MMOL/L (3.4-5.1); PRE OP SODIUM 138 MMOL/L (135-145); TOTAL CARBON DIOXIDE 25.2 MMOL/L (24-32); TOTAL PROTEIN 6.5 G/DL (6.4-8.2); eGFR 57 ML/MIN
[2022-10-25 15:15] LABS: PRE OP AST 10 U/L (10-37)
[~2022-11-01] VITALS: Ht 160 cm; Wt 98.0 kg
[~2022-11-01 07:30] MED LIST changes: -ALEN10TA27 PO; +CARV3.122 PO; +CHOL200074 PO; -FENO48TA9 PO; +FLEC50TA28 PO; -FURO-150 PO; -GABA300C PO; -GLIP5TAB13 PO; -HYDR-4383 PO; +LORA-657 PO; -LORA-660 PO; -MELA10CA2 PO; +MELO-100 PO; -POTA10TA19 PO; -PRAZ2CAP2 PO; -SIMV-42 PO
[2022-11-02] MEDS ORDERED: GABA-535 PO (10:47)
[2022-11-03] VITALS (26 sets, daily range): BP systolic 138–169; BP diastolic 60–89; PULSE 63–88; RESP 12–24; TEMP 98.2–100.2; O2SAT 90–99
[2022-11-03] MEDS ORDERED: ringers solution, lacted 1,000 ML IV SCH ×2 (05:00→07:20)
[2022-11-03] MEDS ORDERED: ceFOXitin 2GM-NS 100mL ADDvant 100 ML IV ONE (05:30)
[2022-11-03] MEDS ORDERED: DOCUMENT DATE & TIME OF BETA-BLOCKER PO ONE (05:30)
[2022-11-03] MEDS ORDERED: famotidine 20mg tablet PO ONE (05:30)
[2022-11-03] MEDS ORDERED: BUPIVAcaine/PF 2.5 mg/ml (0.25%) 30ml vial ONE ×2 (07:07→08:09)
[2022-11-03] MEDS ORDERED: LIDOcaine 1% (10mg/ml)w/preservative inj. 20ml MDV ONE ×2 (07:07→08:09)
[2022-11-03] MEDS ORDERED: midazolam 1 mg/ML 2ml injection ONE (07:14)
[2022-11-03] MEDS ORDERED: fentaNYL /PF 50mcg/ml 5ml ampule ONE (07:14)
[2022-11-03] MEDS ORDERED: propofol inj 20 ML IV ONE (07:15)
[2022-11-03] MEDS ORDERED: rocuronium 10mg/ml inj IV ONE ×2 (07:15→08:41)
[2022-11-03] MEDS ORDERED: ondansetron/PF 4mg/2ml inj ONE (07:15)
[2022-11-03] MEDS ORDERED: propofol inj 0 ML IV ONE (07:15)
[2022-11-03] MEDS ORDERED: LIDOcaine 2% (20mg/ml) 5ml vial ONE (07:15)
[2022-11-03] MEDS ORDERED: dexamethasone sod phosphate 4mg/ml inj. ONE (07:15)
[2022-11-03] MEDS ORDERED: hydrALAZINE 20mg/ml inj. IV PRN (07:20)
[2022-11-03] MEDS ORDERED: ondansetron/PF 4mg/2ml inj IV PRN (07:20)
[2022-11-03] MEDS ORDERED: labetalol 20mg/4ml (5mg/ml) syringe IV PRN (07:20)
[2022-11-03] MEDS ORDERED: fentaNYL/PF 50MCG/1 ML 2ML syringe IV PRN ×2 (07:20)
[2022-11-03] MEDS ORDERED: morphine 4 MG/ML inj SYRINge IV PRN (07:20)
[2022-11-03] MEDS ORDERED: morphine 2 MG/ML inj. syringe IV PRN (07:20)
[2022-11-03] MEDS ORDERED: desflurane 240ml liquid inh. IH ONE (07:37)
[2022-11-03] MEDS ORDERED: LIDOcaine-PF 1% 20mL vial 20 ML VIAL IJ ONE (08:31)
[2022-11-03] MEDS ORDERED: BUPIVACAINE liposomal/PF 13.3 MG/ML vial IM ONE (08:49)
[2022-11-03] MEDS ORDERED: hydrALAZINE 20mg/ml inj. IV ONE (08:56)
[2022-11-03] MEDS ORDERED: INDOCYANINE GREEN 25 MG/10 ML VIAL IV ONE (09:22)
[2022-11-03] MEDS ORDERED: sugammadex 200mg/2ml injection IV ONE (09:59)
[2022-11-03] MEDS ORDERED: fentaNYL/PF 50MCG/1 ML 2ML syringe ONE (09:59)
--- NOTE | 2022-11-03 11:11 | NUR ---
Received from OR via HOSPITAL BED, accompanied by Anesthesiologist and report given by CHRISTINA Anesthesiologist. PATIENT WAKING UP, NO S/S OF PAIN, V/S WNL, SCD ON , PIV 20G RIGHT HAND, ISLAND DRESSING AND BANDAID LAPS SITES CLOSED C/D/I TO ABDOMEN. CARLIN CATHETER DRAINING CLEAR YELLOW URINE. Addendum: 11/03/22 at 1129 by Donovan Jernigan RN Amended: Links added.
[2022-11-03] MEDS: normal saline 1000ml 1,000 ML IV SCH (11:40)
[2022-11-03] MEDS: ringers solution, lacted 1,000 ML IV SCH (11:40)
[2022-11-03] MEDS ORDERED: naloxone 0.4 mg/ml inj IV PRN (11:40)
[2022-11-03] MEDS ORDERED: LEVE750T PO (11:57)
--- NOTE | 2022-11-03 12:27 | NUR ---
Received report on RYAN Infante from [facility]. Patient stable at this time, VSS, on 2 L O2, IV infusing. Patient to be transferred to [address] [place] [address]
[2022-11-03] MEDS: HYDROmorph/NS 0.2 mg/ml PCA 100 ML IV SCH ×7 (12:29→23:00)
--- NOTE | 2022-11-03 12:41 | NUR ---
PATIENT HAS MET ALL CRITERIA FOR TRANSFER TO ORTHO FLOOR. VSS. DRESSINGS INTACT. BED LOW, CALL LIGHT PRESENT AND 2 RAILS UP. RN PRESENT TO ACCEPT CARE OF PATIENT AND REPORT HAS BEEN CALLED. ALL QUESTIONS ANSWERED TO ACCEPTING RN. Addendum: 11/03/22 at 1250 by Donovan Jernigan RN Amended: Links added.
[2022-11-03] MEDS: acetaminophen 325mg tablet PO SCH ×2 (14:00→21:31)
--- NOTE | 2022-11-03 18:52 | NUR ---
Problems reprioritized. Patient report given, questions answered & plan of care reviewed with RN.
[2022-11-03] MEDS: flecainide 50mg tablet PO SCH (21:22)
[2022-11-03] MEDS: carVEDilol 3.125mg tablet PO SCH (21:22)
[2022-11-03] MEDS: gabapentin 400mg capsule PO SCH (21:23)
[2022-11-03] MEDS: levetiracetam 250mg tablet PO SCH (21:24)
[2022-11-03] MEDS: topiramate 100mg tablet PO SCH (21:24)
[2022-11-04] VITALS (8 sets, daily range): BP systolic 123–195; BP diastolic 55–86; PULSE 74–82; RESP 14–18; TEMP 97.2–99.4; O2SAT 92–97
[2022-11-04] MEDS: ringers solution, lacted 1,000 ML IV SCH ×3 (00:11→23:56)
[2022-11-04] MEDS: HYDROmorph/NS 0.2 mg/ml PCA 100 ML IV SCH ×5 (01:00→13:00)
[2022-11-04] MEDS: acetaminophen 325mg tablet PO SCH ×4 (02:12→19:46)
--- NOTE | 2022-11-04 06:22 | NUR ---
Patient in room ORTHO 4014. I have received report from RYAN Juan and had the opportunity to ask questions and assume patient care.
[2022-11-04 06:43] LABS: BASOPHILS % (AUTO) 0.2 % (0-1); EOSINOPHILS % (AUTO) 0.2 % (0-6); HEMATOCRIT 32.4 % (35.0-45.0); HEMOGLOBIN 10.7 g/dl (12.0-16.0); LYMPHOCYTES # (AUTO) 1.7 X10'3 (1.1-4.8); LYMPHOCYTES % (AUTO) 18.8 % (21-51); MEAN CORPUSCULAR HEMOGLOBIN 30.4 PG (27.0-31.0); MEAN CORPUSCULAR HGB CONC 32.8 g/dL (33.0-36.5); MEAN CORPUSCULAR VOLUME 92.6 FL (78-98); MEAN PLATELET VOLUME 7.1 FL (7.4-10.4); MONOCYTES % (AUTO) 10.3 % (2-12); NEUTROPHILS # (AUTO) 6.6 X10'3 (1.8-7.7); NEUTROPHILS % (AUTO) 70.5 % (42-75); PLATELET COUNT 211 X10'3 (140-440); RED CELL DISTRIBUTION WIDTH 14.5 % (11.5-14.5); WHITE BLOOD COUNT 9.3 X10'3 (4.5-11.0)
[2022-11-04 07:01] LABS: ALBUMIN 3.1 G/DL (3.4-5.0); ANION GAP 9 (8-16); BLOOD UREA NITROGEN 12 MG/DL (7-18); BUN/CREATININE RATIO 11.5 (10.0-20.0); CALCIUM 8.8 MG/DL (8.5-10.1); CHLORIDE 103 MMOL/L (99-107); CREATININE 1.04 MG/DL (0.40-0.90); GLUCOSE 127 MG/DL (70-104); POTASSIUM 3.8 MMOL/L (3.5-5.1); SODIUM 137 MMOL/L (135-145); TOTAL CARBON DIOXIDE 24.9 MMOL/L (24-32); eCRCL 38 ML/MIN; eGFR 52 ML/MIN
[2022-11-04] MEDS: flecainide 50mg tablet PO SCH ×2 (07:42→19:46)
[2022-11-04] MEDS: lisinopril 5mg tablet PO SCH (07:43)
[2022-11-04] MEDS: aspirin 81mg, enteric-coated 1 TAB TABLET.DR PO SCH (07:43)
[2022-11-04] MEDS: carVEDilol 3.125mg tablet PO SCH ×2 (07:43→18:57)
[2022-11-04] MEDS: duloxetine 30mg CAPSULE.DR PO SCH (07:44)
[2022-11-04] MEDS: enoxaparin 40mg/0.4ml syringe SQ SCH (07:44)
[2022-11-04] MEDS: topiramate 100mg tablet PO SCH ×2 (08:12→19:54)
[2022-11-04] MEDS: levetiracetam 250mg tablet PO SCH ×2 (08:12→19:47)
[2022-11-04] MEDS ORDERED: PCA WASTE DOCUMENTATION 1 MG ML MC ONE (16:40)
[2022-11-04] MEDS: ketorolac tromethamine 15mg/ml inj. IV SCH ×2 (17:04→23:36)
[2022-11-04] MEDS: ondansetron/PF 4mg/2ml inj IV PRN (17:16)
--- NOTE | 2022-11-04 18:36 | NUR ---
MEDICAL MANAGER documentation: I have reviewed and agree with all interventions, assessments performed and documented by Daniel Montana LVN.
[2022-11-04] MEDS: gabapentin 400mg capsule PO SCH (19:46)
[2022-11-04] MEDS: hydrALAZINE 20mg/ml inj. IV PRN (20:40)
[2022-11-05] VITALS (13 sets, daily range): BP systolic 133–212; BP diastolic 65–107; PULSE 72–77; RESP 16–18; TEMP 97.6–98.5; O2SAT 93–98
[2022-11-05] MEDS: acetaminophen 325mg tablet PO SCH ×5 (02:00→22:14)
--- NOTE | 2022-11-05 06:22 | NUR ---
Problems reprioritized. Patient report given, questions answered & plan of care reviewed with Lisha DAVIS. Addendum: 11/05/22 at 0622 by Yessica Nesbitt RN Amended: Links added.
[2022-11-05 07:20] LABS: BASOPHILS % (AUTO) 0.1 % (0-1); EOSINOPHILS % (AUTO) 0.2 % (0-6); HEMATOCRIT 35.3 % (35.0-45.0); HEMOGLOBIN 11.8 g/dl (12.0-16.0); LYMPHOCYTES # (AUTO) 1.4 X10'3 (1.1-4.8); LYMPHOCYTES % (AUTO) 12.8 % (21-51); MEAN CORPUSCULAR HEMOGLOBIN 30.6 PG (27.0-31.0); MEAN CORPUSCULAR HGB CONC 33.4 g/dL (33.0-36.5); MEAN CORPUSCULAR VOLUME 91.7 FL (78-98); MEAN PLATELET VOLUME 7.3 FL (7.4-10.4); MONOCYTES # (AUTO) 0.9 X10'3 (0-0.9); MONOCYTES % (AUTO) 8.3 % (2-12); NEUTROPHILS # (AUTO) 8.6 X10'3 (1.8-7.7); NEUTROPHILS % (AUTO) 78.6 % (42-75); PLATELET COUNT 239 X10'3 (140-440); RED BLOOD COUNT 3.85 X10'6 (4.20-5.60); RED CELL DISTRIBUTION WIDTH 14.4 % (11.5-14.5); WHITE BLOOD COUNT 10.9 X10'3 (4.5-11.0)
[2022-11-05 07:47] LABS: ALBUMIN 2.8 G/DL (3.4-5.0); ANION GAP 8 (8-16); BLOOD UREA NITROGEN 10 MG/DL (7-18); BUN/CREATININE RATIO 12.5 (10.0-20.0); CALCIUM 9.1 MG/DL (8.5-10.1); CHLORIDE 105 MMOL/L (99-107); GLUCOSE 136 MG/DL (70-104); POTASSIUM 3.8 MMOL/L (3.5-5.1); SODIUM 137 MMOL/L (135-145); TOTAL CARBON DIOXIDE 24.3 MMOL/L (24-32); eCRCL 49 ML/MIN; eGFR 70 ML/MIN
[2022-11-05] MEDS: ketorolac tromethamine 15mg/ml inj. IV SCH ×3 (08:56→23:55)
[2022-11-05] MEDS: duloxetine 30mg CAPSULE.DR PO SCH (08:57)
[2022-11-05] MEDS: flecainide 50mg tablet PO SCH ×2 (08:57→20:31)
[2022-11-05] MEDS: lisinopril 5mg tablet PO SCH ×2 (08:58→20:32)
[2022-11-05] MEDS: carVEDilol 3.125mg tablet PO SCH ×2 (08:58→20:32)
[2022-11-05] MEDS: aspirin 81mg, enteric-coated 1 TAB TABLET.DR PO SCH (08:58)
[2022-11-05] MEDS: enoxaparin 40mg/0.4ml syringe SQ SCH (08:58)
[2022-11-05] MEDS: levetiracetam 250mg tablet PO SCH ×2 (08:59→20:31)
[2022-11-05] MEDS: topiramate 100mg tablet PO SCH ×2 (09:16→20:41)
[2022-11-05] MEDS: ondansetron/PF 4mg/2ml inj IV PRN (09:16)
[2022-11-05] MEDS: mag hydrox/Alum hydrox/simeth 30ml oral suspension PO PRN (09:21)
[2022-11-05] MEDS: hydrALAZINE 20mg/ml inj. IV PRN ×2 (10:45→22:07)
[2022-11-05] MEDS ORDERED: lisinopril 10 MG tablet PO ONE (12:00)
--- NOTE | 2022-11-05 12:04 | NUR ---
Dr. Faye in to consult with patient. New orders received and placed.
--- NOTE | 2022-11-05 12:04 | NUR ---
Paged PT for eval.
[2022-11-05] MEDS: metoclopramide 5 mg/ml inj IV SCH ×3 (12:26→20:31)
[2022-11-05] MEDS: normal saline 1000ml 1,000 ML IV SCH (12:27)
[2022-11-05 12:38] LABS: PRO BRAIN NATRIURETIC PEPTIDE 2057 PG/ML (0-450)
[2022-11-05] MEDS ORDERED: ondansetron/PF 4mg/2ml inj IV PRN (13:45)
[2022-11-05] MEDS: furosemide 20 MG/2 ML vial IV SCH ×2 (14:48→20:31)
--- NOTE | 2022-11-05 18:00 | NUR ---
Patient in room ORTHO 4014. I have received report from Adam Butler and RYAN Husain and had the opportunity to ask questions and assume patient care.
--- NOTE | 2022-11-05 18:36 | NUR ---
Student documentation: I have reviewed all interventions, assessments performed and documented by Carrie [facility] of [facility]. Student Medication Administration: For this medication-pass time frame of 1251-5358, all medication were reviewed, dispensed, administered and documented per hospital policy by Carrie [facility] of [facility].
[2022-11-05] MEDS: gabapentin 400mg capsule PO SCH (20:31)
--- NOTE | 2022-11-05 22:31 | NUR ---
Dr. Hill has been called regarding redness and swollen right upper arm .He gane me a order for Vanco 1gm daily and Zosyn 3.125 BID and Benadryl 25 mg x4 PRN
[2022-11-05] MEDS ORDERED: diphenhydrAMINE 25mg capsule PO PRN (22:35)
[2022-11-05] MEDS: vancomycin/NS 1 GM ADD-VANTAGE 250 ML IV SCH (23:03)
[2022-11-06] VITALS (9 sets, daily range): BP systolic 144–178; BP diastolic 66–87; PULSE 75–90; RESP 15–20; TEMP 98–99.9; O2SAT 92–97
[2022-11-06] MEDS: metoclopramide 5 mg/ml inj IV SCH ×2 (02:00→08:00)
[2022-11-06] MEDS: acetaminophen 325mg tablet PO SCH ×4 (02:00→20:02)
[2022-11-06] MEDS: mag hydrox/Alum hydrox/simeth 30ml oral suspension PO PRN (02:02)
[2022-11-06] MEDS: hydrALAZINE 20mg/ml inj. IV PRN (04:01)
[2022-11-06] MEDS: ondansetron 4mg rapidly disintigrating tab PO PRN (04:30)
[2022-11-06] MEDS ORDERED: ondansetron/PF 4mg/2ml inj IV PRN (05:25)
[2022-11-06] MEDS ORDERED: ondansetron/PF 4mg/2ml inj ONE (05:32)
--- NOTE | 2022-11-06 06:21 | NUR ---
Problems reprioritized. Patient report given, questions answered & plan of care reviewed with RYAN Husain and RYAN Butler student.
--- NOTE | 2022-11-06 06:25 | NUR ---
Received report from MAKENZIE Chow RN.
[2022-11-06 06:50] LABS: BASOPHILS % (AUTO) 0.2 % (0-1); EOSINOPHILS % (AUTO) 0.3 % (0-6); HEMATOCRIT 38.3 % (35.0-45.0); HEMOGLOBIN 12.7 g/dl (12.0-16.0); LYMPHOCYTES % (AUTO) 7.3 % (21-51); MEAN CORPUSCULAR HEMOGLOBIN 30.4 PG (27.0-31.0); MEAN CORPUSCULAR HGB CONC 33.2 g/dL (33.0-36.5); MEAN CORPUSCULAR VOLUME 91.6 FL (78-98); MEAN PLATELET VOLUME 7.4 FL (7.4-10.4); MONOCYTES # (AUTO) 1.1 X10'3 (0-0.9); MONOCYTES % (AUTO) 7.9 % (2-12); NEUTROPHILS # (AUTO) 11.4 X10'3 (1.8-7.7); NEUTROPHILS % (AUTO) 84.3 % (42-75); PLATELET COUNT 346 X10'3 (140-440); RED BLOOD COUNT 4.18 X10'6 (4.20-5.60); RED CELL DISTRIBUTION WIDTH 14.4 % (11.5-14.5); WHITE BLOOD COUNT 13.5 X10'3 (4.5-11.0)
[2022-11-06 07:50] LABS: ANION GAP 10 (8-16); BLOOD UREA NITROGEN 13 MG/DL (7-18); BUN/CREATININE RATIO 14.9 (10.0-20.0); CALCIUM 9.7 MG/DL (8.5-10.1); CHLORIDE 101 MMOL/L (99-107); CREATININE 0.87 MG/DL (0.40-0.90); GLUCOSE 206 MG/DL (70-104); POTASSIUM 3.4 MMOL/L (3.5-5.1); SODIUM 137 MMOL/L (135-145); TOTAL CARBON DIOXIDE 25.6 MMOL/L (24-32); eCRCL 46 ML/MIN; eGFR 63 ML/MIN
--- NOTE | 2022-11-06 08:14 | NUR ---
Order to hold Reglan and place NG per Dr. Betts. NG placed; Continuous Low setting. Keppra switched to IV from PO. Patient tolerated NG placement well. 1700cc output.
[2022-11-06] MEDS ORDERED: levetiracetam inj 750 MG in normal saline 100ml IV soln 92.5 ML IV SCH (08:15)
[2022-11-06] MEDS: furosemide 20 MG/2 ML vial IV SCH ×2 (09:21→20:02)
[2022-11-06] MEDS: ketorolac tromethamine 15mg/ml inj. IV SCH ×2 (09:21→16:35)
[2022-11-06] MEDS: enoxaparin 40mg/0.4ml syringe SQ SCH (10:00)
[2022-11-06] MEDS: aspirin 81mg, enteric-coated 1 TAB TABLET.DR PO SCH (10:01)
[2022-11-06] MEDS: carVEDilol 3.125mg tablet PO SCH ×2 (10:01→20:02)
[2022-11-06] MEDS: flecainide 50mg tablet PO SCH ×2 (10:01→20:02)
[2022-11-06] MEDS: duloxetine 30mg CAPSULE.DR PO SCH (10:01)
[2022-11-06] MEDS: lisinopril 5mg tablet PO SCH ×2 (10:02→20:02)
[2022-11-06] MEDS: topiramate 100mg tablet PO SCH ×2 (10:02→20:05)
--- NOTE | 2022-11-06 10:20 | NUR ---
Dr. Faye in to see patient. Aware of right arm redness and warmth. Order received for VS doppler.
--- NOTE | 2022-11-06 11:35 | NUR ---
Updated sisterStephanie, on patients situation.
[2022-11-06] MEDS: vancomycin/NS 1 GM ADD-VANTAGE 250 ML IV SCH ×2 (13:01→23:20)
[2022-11-06] MEDS ORDERED: potassium Cl 20 mEq SR tablet PO PRN ×2 (14:10)
[2022-11-06] MEDS ORDERED: magnesium 4gm in 100ml NS 100 ML IV PRN (14:10)
[2022-11-06] MEDS ORDERED: potassium Cl 40MEQ/1/2NS 520ml 520 ML IV PRN (14:10)
[2022-11-06] MEDS ORDERED: magnesium 2GM in 50ml NS 50 ML IV PRN (14:10)
[2022-11-06] MEDS ORDERED: magnesium Cl slow-release 64mg tablet PO PRN (14:10)
[2022-11-06] MEDS ORDERED: potassium Cl 40MEQ/1/2NS 520ml 520 ML IV ONE (14:35)
--- NOTE | 2022-11-06 18:10 | NUR ---
Report given to klaus field RN.
--- NOTE | 2022-11-06 18:23 | NUR ---
Patient in room ORTHO 4014. I have received report from shirin Husain and had the opportunity to ask questions and assume patient care.
[2022-11-06] MEDS: K and/or MAG REPLACEMENT MC SCH (20:00)
[2022-11-06] MEDS: gabapentin 400mg capsule PO SCH (20:02)
[2022-11-06] MEDS: levetiracetam inj 750 MG in normal saline 100ml IV soln 100 ML IV SCH (20:03)
[2022-11-07] VITALS (8 sets, daily range): BP systolic 147–191; BP diastolic 65–88; PULSE 76–86; RESP 13–20; TEMP 97.9–100; O2SAT 96–98
[2022-11-07] MEDS: acetaminophen 325mg tablet PO SCH ×4 (02:00→20:31)
[2022-11-07] MEDS: normal saline 1000ml 1,000 ML IV SCH (05:54)
--- NOTE | 2022-11-07 06:29 | NUR ---
Problems reprioritized. Patient report given, questions answered & plan of care reviewed with RYAN HOLLAND.
--- NOTE | 2022-11-07 06:56 | NUR ---
Patient in room ORTHO 4014. I have received report from JUSTUS DAVIS and had the opportunity to ask questions and assume patient care.
[2022-11-07] MEDS: flecainide 50mg tablet PO SCH ×2 (08:00→20:32)
[2022-11-07] MEDS: aspirin 81mg, enteric-coated 1 TAB TABLET.DR PO SCH (08:00)
[2022-11-07] MEDS: duloxetine 30mg CAPSULE.DR PO SCH (08:00)
[2022-11-07] MEDS: K and/or MAG REPLACEMENT MC SCH ×2 (08:00→20:00)
[2022-11-07] MEDS: lisinopril 5mg tablet PO SCH (08:00)
[2022-11-07] MEDS: carVEDilol 3.125mg tablet PO SCH ×2 (08:00→20:31)
[2022-11-07] MEDS: topiramate 100mg tablet PO SCH ×2 (08:00→20:32)
[2022-11-07 08:02] LABS: ALBUMIN 2.9 G/DL (3.4-5.0); ANION GAP 6 (8-16); BLOOD UREA NITROGEN 17 MG/DL (7-18); BUN/CREATININE RATIO 19.1 (10.0-20.0); CALCIUM 9.2 MG/DL (8.5-10.1); CHLORIDE 102 MMOL/L (99-107); CREATININE 0.89 MG/DL (0.40-0.90); GLUCOSE 111 MG/DL (70-104); MAGNESIUM 2.3 MG/DL (1.5-2.4); POTASSIUM 3.2 MMOL/L (3.5-5.1); SODIUM 138 MMOL/L (135-145); TOTAL CARBON DIOXIDE 29.9 MMOL/L (24-32); eCRCL 44 ML/MIN; eGFR 62 ML/MIN
[2022-11-07] MEDS: enoxaparin 40mg/0.4ml syringe SQ SCH (08:20)
[2022-11-07] MEDS: levetiracetam inj 750 MG in normal saline 100ml IV soln 100 ML IV SCH ×2 (08:20→20:28)
[2022-11-07] MEDS: furosemide 20 MG/2 ML vial IV SCH ×2 (08:21→20:31)
[2022-11-07 08:38] LABS: BASOPHILS % (AUTO) 0.4 % (0-1); EOSINOPHILS # (AUTO) 0.2 X10'3 (0-0.9); HEMATOCRIT 34.6 % (35.0-45.0); HEMOGLOBIN 11.4 g/dl (12.0-16.0); LYMPHOCYTES % (AUTO) 13.2 % (21-51); MEAN CORPUSCULAR HEMOGLOBIN 30.5 PG (27.0-31.0); MEAN CORPUSCULAR HGB CONC 32.8 g/dL (33.0-36.5); MEAN CORPUSCULAR VOLUME 92.8 FL (78-98); MEAN PLATELET VOLUME 7.6 FL (7.4-10.4); MONOCYTES # (AUTO) 0.9 X10'3 (0-0.9); MONOCYTES % (AUTO) 12.2 % (2-12); NEUTROPHILS # (AUTO) 5.5 X10'3 (1.8-7.7); NEUTROPHILS % (AUTO) 72.2 % (42-75); PLATELET COUNT 253 X10'3 (140-440); RED BLOOD COUNT 3.73 X10'6 (4.20-5.60); RED CELL DISTRIBUTION WIDTH 14.1 % (11.5-14.5); WHITE BLOOD COUNT 7.7 X10'3 (4.5-11.0)
[2022-11-07] MEDS ORDERED: POTASSIUM BICARB 20meq eff tab 20 MEQ TABLET.EFF PO SCH ×2 (09:20)
--- NOTE | 2022-11-07 09:20 | NUR ---
Page Sent PAGER ID: [phone] MESSAGE: [phone] Sylvester HOYT, PT K IS 3.2, I AM GOING TP PUT IN A PER PROTOCOL ODER FOR EFFER K, SHE CAN'T SWALLOW THE ORDERED KDUR TABS. AMALIA 0139
--- NOTE | 2022-11-07 09:33 | NUR ---
meds were scanned and given computer and did not save.
[2022-11-07] MEDS ORDERED: VANCOMYCIN LEVEL IV ONE (10:30)
--- NOTE | 2022-11-07 11:00 | NUR ---
md notified about increased bp and bp meds given about 1.5 hrs ago. said to wait and retake bp if still high will give prn hydralazine.
[2022-11-07 11:02] LABS: CREATININE 0.93 MG/DL (0.40-0.90); eCRCL 43 ML/MIN; eGFR 59 ML/MIN
--- NOTE | 2022-11-07 12:59 | NUR ---
waiting on [facility]
--- NOTE | 2022-11-07 13:00 | NUR ---
pt refused pt earlier this am, pt then came back in to walk pt she agreed, walked about 70 ft fww. then i got her up and in the chair after.
[2022-11-07] MEDS: hydrALAZINE 20mg/ml inj. IV PRN (13:17)
[2022-11-07] MEDS: vancomycin/NS 1 GM ADD-VANTAGE 250 ML IV SCH ×2 (13:22→22:59)
[2022-11-07] MEDS: POTASSIUM BICARB 20meq eff tab 20 MEQ TABLET.EFF PO PRN ×2 (13:56→18:42)
--- NOTE | 2022-11-07 16:30 | NUR ---
attempted to ask pt to walk, pt did refuse. stated she was in pain, working on getting pain meds, did educate about importance of walking.
--- NOTE | 2022-11-07 16:30 | NUR ---
resident came to do rounding, pt said she was having some pain i asked about some pain meds for pt through iv due to stomach irritation due to pills. also asked if they would want iv hydralazine scheduled due to high bps and po intake being irritable. resident stated she would look at it and put orders in.
--- NOTE | 2022-11-07 17:26 | NUR ---
called resident again about pain meds, stated that i need to talk to surgeon about pain meds. will call surgeon.
--- NOTE | 2022-11-07 17:47 | NUR ---
dr mei stated he will address the pts request for something for pain when he comes up during rounding. i did let him know the pt only wants to walk morning and night and declined a walk but agreed to getting up to the chair.
--- NOTE | 2022-11-07 18:30 | NUR ---
Problems reprioritized. Patient report given, questions answered & plan of care reviewed with angel carpio.
[2022-11-07] MEDS: gabapentin 400mg capsule PO SCH (20:32)
[2022-11-07] MEDS: lisinopril 20mg tablet PO SCH (20:32)
[2022-11-08] MEDS: POTASSIUM BICARB 20meq eff tab 20 MEQ TABLET.EFF PO PRN ×5 (01:07→22:15)
[2022-11-08] MEDS: acetaminophen 325mg tablet PO SCH ×4 (01:07→22:01)
[2022-11-08 06:00] VITALS: BP 183/65; PULSE 78; RESP 16; TEMP 98.1; O2SAT 93
[2022-11-08 06:52] LABS: BASOPHILS % (AUTO) 0.3 % (0-1); EOSINOPHILS # (AUTO) 0.1 X10'3 (0-0.9); EOSINOPHILS % (AUTO) 1.3 % (0-6); HEMOGLOBIN 11.7 g/dl (12.0-16.0); LYMPHOCYTES # (AUTO) 0.8 X10'3 (1.1-4.8); LYMPHOCYTES % (AUTO) 9.5 % (21-51); MEAN CORPUSCULAR HEMOGLOBIN 30.6 PG (27.0-31.0); MEAN CORPUSCULAR HGB CONC 33.3 g/dL (33.0-36.5); MEAN CORPUSCULAR VOLUME 91.9 FL (78-98); MEAN PLATELET VOLUME 7.5 FL (7.4-10.4); MONOCYTES # (AUTO) 0.8 X10'3 (0-0.9); MONOCYTES % (AUTO) 9.7 % (2-12); NEUTROPHILS # (AUTO) 6.5 X10'3 (1.8-7.7); NEUTROPHILS % (AUTO) 79.2 % (42-75); PLATELET COUNT 225 X10'3 (140-440); RED BLOOD COUNT 3.81 X10'6 (4.20-5.60); WHITE BLOOD COUNT 8.2 X10'3 (4.5-11.0)
[2022-11-08 06:54] LABS: ALBUMIN 2.9 G/DL (3.4-5.0); ANION GAP 8 (8-16); BLOOD UREA NITROGEN 15 MG/DL (7-18); CALCIUM 9.4 MG/DL (8.5-10.1); CHLORIDE 99 MMOL/L (99-107); CREATININE 0.79 MG/DL (0.40-0.90); GLUCOSE 126 MG/DL (70-104); MAGNESIUM 2.4 MG/DL (1.5-2.4); SODIUM 136 MMOL/L (135-145); TOTAL CARBON DIOXIDE 28.9 MMOL/L (24-32); eCRCL 50 ML/MIN; eGFR 71 ML/MIN
--- NOTE | 2022-11-08 06:54 | NUR ---
Problems reprioritized. Patient report given, questions answered & plan of care reviewed with RYAN GARCIA.
--- NOTE | 2022-11-08 07:00 | NUR ---
Patient in room ORTHO 4014. I have received report from Dee and had the opportunity to ask questions and assume patient care.
[2022-11-08 07:26] LABS: HEMOGLOBIN A1C 5.4 % (4.5-6.2)
[2022-11-08 07:50] VITALS: RESP 16; O2SAT 93
[2022-11-08] MEDS ORDERED: carvedilol 6.25mg tablet PO SCH (08:00)
[2022-11-08] MEDS: K and/or MAG REPLACEMENT MC SCH ×2 (08:00→19:25)
[2022-11-08 10:00] VITALS: BP 190/83; PULSE 71; RESP 18; TEMP 98.4; O2SAT 96
[2022-11-08] MEDS: furosemide 20 MG/2 ML vial IV SCH ×2 (10:11→20:45)
[2022-11-08] MEDS: levetiracetam inj 750 MG in normal saline 100ml IV soln 100 ML IV SCH ×2 (10:11→20:45)
[2022-11-08] MEDS: aspirin 81mg, enteric-coated 1 TAB TABLET.DR PO SCH (10:12)
[2022-11-08] MEDS: duloxetine 30mg CAPSULE.DR PO SCH (10:12)
[2022-11-08] MEDS: topiramate 100mg tablet PO SCH ×2 (10:12→22:03)
[2022-11-08] MEDS: flecainide 50mg tablet PO SCH ×2 (10:12→22:02)
[2022-11-08] MEDS: lisinopril 20mg tablet PO SCH ×2 (10:14→22:03)
[2022-11-08] MEDS: enoxaparin 40mg/0.4ml syringe SQ SCH (10:15)
[2022-11-08] MEDS: vancomycin/NS 1 GM ADD-VANTAGE 250 ML IV SCH (10:53)
[2022-11-08] MEDS: metoclopramide 5 mg/ml inj IV SCH ×3 (12:02→20:46)
[2022-11-08] MEDS ORDERED: metoclopramide 5 mg/ml inj IV SCH (14:00)
--- NOTE | 2022-11-08 15:10 | NUR ---
Initial: Pt admit DX ascending colon CA post-op day 5 s/p laparoscopic R hemicolectomy per EMR. Noted hx T2DM though highest A1C 5.8% 2019 and current A1C 5.4%; likely inaccurate. Pt advanced to clear liquids post-op 11/03 WL then full liquids 11/05 WL PO ~63% first 4 documented meals however has been NPO w/ NG in place since 11/06 per EMR. Pt w/ abdominal pain, distention, and N/V 11/06 DX Ileus passing gas though no stool receiving routine reglan per EMR. NG -2500ml 11/06-11/07 down to 1100ml past 24 hours in EMR. If pt to remain NPO w/ delay of GI function would benefit from PN post-op. Will monitor for further nutrition intervention needs. Rec: 1. advance to low-residue diet as medically indicated 2. monitor for ONS needs w/ diet advancement 3. If to remain NPO w/ delay of GI function post-op; TPN for nutrition needs 4. routine promotility agent per surgeon 5. weekly wt Addendum: 11/08/22 at [address] Amended: Links added.
[2022-11-08 18:00] VITALS: BP 164/71; PULSE 76; RESP 18; TEMP 98.4; O2SAT 96
--- NOTE | 2022-11-08 18:28 | NUR ---
Problems reprioritized. Patient report given, questions answered & plan of care reviewed with Keke.
[2022-11-08 20:00] VITALS: RESP 18; O2SAT 96
[2022-11-08] MEDS ORDERED: cloNIDine 0.1 MG/24 HOUR patch (7 day patch) TD SCH (21:05)
[2022-11-08 22:00] VITALS: BP 159/73; PULSE 75; RESP 16; TEMP 98.4; O2SAT 98
[2022-11-08] MEDS: gabapentin 400mg capsule PO SCH (22:32)
[2022-11-09] VITALS (11 sets, daily range): BP systolic 142–195; BP diastolic 59–90; PULSE 74–80; RESP 12–20; TEMP 97.6–98.8; O2SAT 93–97
[2022-11-09] MEDS: metoclopramide 5 mg/ml inj IV SCH ×4 (03:07→20:00)
[2022-11-09] MEDS: acetaminophen 325mg tablet PO SCH ×4 (03:07→22:42)
--- NOTE | 2022-11-09 06:30 | NUR ---
Problems reprioritized. Patient report given, questions answered & plan of care reviewed with JEOVANY RUSSELL.
--- NOTE | 2022-11-09 06:41 | NUR ---
I have received report from RYAN Epps and had the opportunity to ask questions and assume patient care. No distress at this time.
[2022-11-09 07:14] LABS: MAGNESIUM 2.2 MG/DL (1.5-2.4); POTASSIUM 3.5 MMOL/L (3.5-5.1)
[2022-11-09] MEDS: aspirin 81mg, enteric-coated 1 TAB TABLET.DR PO SCH (08:00)
[2022-11-09] MEDS: K and/or MAG REPLACEMENT MC SCH ×2 (08:00→20:00)
--- NOTE | 2022-11-09 09:00 | NUR ---
Pt stated she had loose stools during the night and does not want to take Reglan at this time. Med was held per her refusal of med.
--- NOTE | 2022-11-09 09:07 | NUR ---
Paged PICC to help w/ IV placement. 2x unsuccessful attempts.
[2022-11-09] MEDS: levetiracetam inj 750 MG in normal saline 100ml IV soln 100 ML IV SCH ×2 (09:22→19:59)
--- NOTE | 2022-11-09 09:30 | NUR ---
I was notified by the charge nurse the patient is having what looks like a seizure, slight tremors, patient was mumbling but not responding to verbal que's. VS: BP 170/91, pulse: 70, RR:14 O2 : 97. Seizure precautions in place. I paged Dr. Talamantes/ resident and awaiting response. After 5 mins the episode stopped, patient awake/ alert and talking. Also called for a rapid response. Hx of seizures. -Awaiting orders.
[2022-11-09] MEDS: furosemide 20 MG/2 ML vial IV SCH ×2 (09:37→19:57)
[2022-11-09] MEDS: flecainide 50mg tablet PO SCH ×2 (10:14→22:43)
[2022-11-09] MEDS: duloxetine 30mg CAPSULE.DR PO SCH (10:15)
[2022-11-09] MEDS: lisinopril 20mg tablet PO SCH ×2 (10:15→22:42)
[2022-11-09] MEDS: carvedilol 6.25mg tablet PO SCH ×2 (10:15→22:41)
[2022-11-09] MEDS: topiramate 100mg tablet PO SCH ×2 (10:16→22:40)
[2022-11-09] MEDS: enoxaparin 40mg/0.4ml syringe SQ SCH (10:17)
--- NOTE | 2022-11-09 10:26 | NUR ---
At approx 0915 I was called to bedside due to pt having a what appeared to be a seizure. Her eyes were partially closed and blinking, her upper extremities were twitching, and pt was unable to follow commands. YVONNE Nelson at bedside w/ pt, as was Gladys Constantino, RN, [facility]. RR Team and Respiratory dept were paged. Visible seizure activity ceased at approx 0920, and pt was again able to follow commands and answer questions, including her full name and birthdate. Dr Talamantes and Dr Betts were notified of the event promptly, and orders were received by YVONNE Nelson. Nursing art supervisor, Tammy, and Waqas, Court Orderly were also apprised.
[2022-11-09] MEDS: hydrALAZINE 20mg/ml inj. IV PRN ×2 (11:35→17:14)
[2022-11-09] MEDS: normal saline 1000ml 1,000 ML IV SCH (11:44)
[2022-11-09] MEDS: ondansetron 4mg rapidly disintigrating tab PO PRN (11:50)
--- NOTE | 2022-11-09 11:53 | NUR ---
Student documentation: I have reviewed and agree with all interventions, assessments performed and documented by Gladys Instructor RYAN.
--- NOTE | 2022-11-09 12:15 | NUR ---
Hydralazine IV admin effective for decreasing BP. Addendum: 11/09/22 at 1216 by Leslie Sanchez LVN, LVN Amended: Links added.
--- NOTE | 2022-11-09 14:51 | NUR ---
PICC nurse in w/ the pt at this time place a midline. Addendum: 11/09/22 at 1458 by Leslie Sanchez LVN, LVN PICC nurse not in room at this time. PICC not placed.
--- NOTE | 2022-11-09 15:02 | NUR ---
Paged PICC for reminder on placement.
--- NOTE | 2022-11-09 18:00 | NUR ---
I have reviewed and agree with interventions, assessments, and documentation by Lelsie Puentes LVN.
--- NOTE | 2022-11-09 18:36 | NUR ---
Patient in room ORTHO 4014. I have received report from JEOVANY RUSSELL and had the opportunity to ask questions and assume patient care.
[2022-11-09] MEDS: gabapentin 400mg capsule PO SCH (22:43)
[2022-11-10] VITALS (9 sets, daily range): BP systolic 123–148; BP diastolic 58–77; PULSE 69–83; RESP 12–18; TEMP 97.9–99.9; O2SAT 93–97
[2022-11-10] MEDS: metoclopramide 5 mg/ml inj IV SCH ×2 (02:00→08:00)
[2022-11-10] MEDS: acetaminophen 325mg tablet PO SCH ×2 (02:38→09:18)
[2022-11-10 06:16] LABS: BASOPHILS % (AUTO) 0.2 % (0-1); EOSINOPHILS # (AUTO) 0.2 X10'3 (0-0.9); EOSINOPHILS % (AUTO) 1.9 % (0-6); HEMATOCRIT 36.6 % (35.0-45.0); HEMOGLOBIN 12.3 g/dl (12.0-16.0); LYMPHOCYTES # (AUTO) 1.2 X10'3 (1.1-4.8); LYMPHOCYTES % (AUTO) 12.9 % (21-51); MEAN CORPUSCULAR HEMOGLOBIN 30.4 PG (27.0-31.0); MEAN CORPUSCULAR HGB CONC 33.5 g/dL (33.0-36.5); MEAN CORPUSCULAR VOLUME 90.5 FL (78-98); MEAN PLATELET VOLUME 7.4 FL (7.4-10.4); MONOCYTES # (AUTO) 1.2 X10'3 (0-0.9); MONOCYTES % (AUTO) 13.6 % (2-12); NEUTROPHILS # (AUTO) 6.4 X10'3 (1.8-7.7); NEUTROPHILS % (AUTO) 71.4 % (42-75); PLATELET COUNT 328 X10'3 (140-440); RED BLOOD COUNT 4.04 X10'6 (4.20-5.60); RED CELL DISTRIBUTION WIDTH 13.8 % (11.5-14.5)
[2022-11-10 06:19] LABS: ALANINE AMINOTRANSFERASE 25 U/L (12-78); ALBUMIN 2.8 G/DL (3.4-5.0); ALBUMIN/GLOBULIN RATIO 0.8 (1.1-1.5); ALKALINE PHOSPHATASE 76 IU/L (46-116); ANION GAP 10 (8-16); ASPARTATE AMINO TRANSFERASE 26 U/L (10-37); BILIRUBIN,TOTAL 0.5 MG/DL (0.1-1.0); BLOOD UREA NITROGEN 26 MG/DL (7-18); BUN/CREATININE RATIO 30.2 (10.0-20.0); CALCIUM 9.8 MG/DL (8.5-10.1); CHLORIDE 97 MMOL/L (99-107); CREATININE 0.86 MG/DL (0.40-0.90); GLUCOSE 123 MG/DL (70-104); MAGNESIUM 2.2 MG/DL (1.5-2.4); SODIUM 135 MMOL/L (135-145); TOTAL CARBON DIOXIDE 27.9 MMOL/L (24-32); TOTAL PROTEIN 6.3 G/DL (6.4-8.2); eCRCL 46 ML/MIN; eGFR 64 ML/MIN
[2022-11-10 06:27] LABS: POTASSIUM 3.3 MMOL/L (3.5-5.1)
--- NOTE | 2022-11-10 06:35 | NUR ---
Problems reprioritized. Patient report given, questions answered & plan of care reviewed with VALENTÍN DAVIS.
--- NOTE | 2022-11-10 07:24 | NUR ---
Patient in room ORTHO 4014. I have received report from Aleksandra Lake RN and had the opportunity to ask questions and assume patient care.Adjusted patients NG tube
[2022-11-10] MEDS: K and/or MAG REPLACEMENT MC SCH ×3 (08:00→20:00)
[2022-11-10] MEDS: duloxetine 30mg CAPSULE.DR PO SCH (09:17)
[2022-11-10] MEDS: flecainide 50mg tablet PO SCH ×2 (09:17→22:17)
[2022-11-10] MEDS: levetiracetam inj 750 MG in normal saline 100ml IV soln 100 ML IV SCH ×2 (09:17→22:10)
[2022-11-10] MEDS: carvedilol 6.25mg tablet PO SCH ×2 (09:18→22:17)
[2022-11-10] MEDS: aspirin 81mg tab.chew PO SCH (09:19)
[2022-11-10] MEDS: enoxaparin 40mg/0.4ml syringe SQ SCH (09:20)
[2022-11-10] MEDS: furosemide 20 MG/2 ML vial IV SCH (09:20)
[2022-11-10] MEDS: lisinopril 20mg tablet PO SCH ×2 (09:24→22:16)
--- NOTE | 2022-11-10 09:24 | NUR ---
Student documentation: I have reviewed and agree with assessment performed and documented by student nurse.
[2022-11-10] MEDS: topiramate 100mg tablet PO SCH ×2 (09:25→22:16)
--- NOTE | 2022-11-10 10:37 | NUR ---
Spoke to Dr Betts he is aware patient to get PICC line today and start on TPN. Per Dr Betts please DC Reglan it is contraindicated for a bowel obstruction. Dr Betts aware patient did have 2 loose bowel movements today.
--- NOTE | 2022-11-10 10:59 | NUR ---
Contacted Dr Nair Resident regarding needing consent signed in the chart. Per She will take care of it.
--- NOTE | 2022-11-10 11:04 | NUR ---
Paged PICC RN
[2022-11-10] MEDS: ondansetron/PF 4mg/2ml inj IV PRN ×2 (11:11→22:08)
[2022-11-10] MEDS ORDERED: magnesium 2GM in 50ml NS 50 ML IV PRN (12:25)
[2022-11-10] MEDS ORDERED: magnesium Cl slow-release 64mg tablet PO PRN (12:25)
[2022-11-10] MEDS ORDERED: magnesium 4gm in 100ml NS 100 ML IV PRN (12:25)
[2022-11-10] MEDS ORDERED: POTASSIUM BICARB 20meq eff tab 20 MEQ TABLET.EFF PO PRN (12:25)
[2022-11-10] MEDS: POTASSIUM BICARB 20meq eff tab 20 MEQ TABLET.EFF PO PRN ×2 (13:11→22:15)
--- NOTE | 2022-11-10 15:21 | NUR ---
TPN consult: Pt has been NPO with ice chips since 11/08. Per TC with RN pt gets nauseated every time the NGT is clamped. Pt got a PICC placed today per EMR. LBM 11/09 per EMR though per physician note abdominal x-ray more consistent with postoperative SBO. TPN appears to be appropriate at this time. TPN recommendations below have been d/w clinical pharmacist. Will continue to follow and make recommendations as appropriate. Recommendations: 1) Continuous TPN using 2:1 Clinimix-E 07/02 with 70 mL/hr goal rate and additional 100 mL 20% ILE to run at 8.33 mL/hr for 12 hours/day. To provide 1680 mL volume/day, 84 g AA, 336 g dext (2.38 mg/kg/min GIR), and 1678 kcal 2) Prealbumin and TG q Monday/ 3) Advance to low fiber diet as medically indicated 4) Monitor for ONS needs with diet advancement 5) Bowel care per physician 6) Daily scaled weights Addendum: 11/10/22 at [address] Amended: Links added.
[2022-11-10] MEDS ORDERED: Dextrose 10%-water IV solution 1,000 ML IV PRN ×2 (15:35→15:39)
[2022-11-10] MEDS: normal saline 1000ml 1,000 ML IV SCH (16:27)
[2022-11-10 16:38] LABS: PHOSPHORUS 5.7 MG/DL (2.3-4.5)
[2022-11-10] MEDS: MANGANESE IV SCH (17:48)
[2022-11-10] MEDS: COPPER IV SCH (17:48)
[2022-11-10] MEDS: [UNRECOGNIZED DRUG - OTHER] IV SCH (17:48)
[2022-11-10] MEDS: SELENIUM IV SCH (17:48)
[2022-11-10] MEDS: CHROMIC CHLORIDE IV SCH (17:48)
[2022-11-10] MEDS: ZINC IV SCH (17:48)
--- NOTE | 2022-11-10 18:23 | NUR ---
Problems reprioritized. Patient report given, questions answered & plan of care reviewed with Aleksandra Lake RN aware of red color to NG tube Dr Betts also aware .
[2022-11-10] MEDS: fat emulsion 20% inj. 100 ML IV SCH (20:15)
[2022-11-10] MEDS: pantoprazole 40MG/NS 100ML BAG 100 ML IV SCH (21:07)
[2022-11-10] MEDS: diatr meglu/diatrizoate 30ml oral sol.-(3 dose) bottle PO SCH (22:15)
[2022-11-10] MEDS: gabapentin 400mg capsule PO SCH (22:16)
[2022-11-10] MEDS: acetaminophen 325mg/10.15ml oral unit dose solution PO SCH (22:21)
[2022-11-11] MEDS: acetaminophen 325mg/10.15ml oral unit dose solution PO SCH ×4 (02:00→22:06)
[2022-11-11 06:00] VITALS: BP 128/60; PULSE 56; RESP 16; TEMP 98.1; O2SAT 94
--- NOTE | 2022-11-11 06:24 | NUR ---
Problems reprioritized. Patient report given, questions answered & plan of care reviewed with VALENTÍN DAVIS.
[2022-11-11] MEDS ORDERED: ZINC/COPPER/MANGANESE/SELENIUM 1 ML, chromic chloride inj. 10 MCG in AA 5%/CALCIUM/LYTE... IV SCH ×2 (06:42→14:00)
[2022-11-11 07:11] LABS: ALANINE AMINOTRANSFERASE 22 U/L (12-78); ALBUMIN 2.6 G/DL (3.4-5.0); ALBUMIN/GLOBULIN RATIO 0.8 (1.1-1.5); ALKALINE PHOSPHATASE 66 IU/L (46-116); ANION GAP 5 (8-16); ASPARTATE AMINO TRANSFERASE 14 U/L (10-37); BILIRUBIN,TOTAL 0.3 MG/DL (0.1-1.0); BLOOD UREA NITROGEN 25 MG/DL (7-18); BUN/CREATININE RATIO 29.4 (10.0-20.0); CALCIUM 9.4 MG/DL (8.5-10.1); CHLORIDE 100 MMOL/L (99-107); CREATININE 0.85 MG/DL (0.40-0.90); GLUCOSE 175 MG/DL (70-104); MAGNESIUM 2.2 MG/DL (1.5-2.4); PHOSPHORUS 3.7 MG/DL (2.3-4.5); SODIUM 138 MMOL/L (135-145); TOTAL CARBON DIOXIDE 33.4 MMOL/L (24-32); TOTAL PROTEIN 5.9 G/DL (6.4-8.2); eCRCL 47 ML/MIN; eGFR 65 ML/MIN
[2022-11-11 07:16] LABS: POTASSIUM 2.9 MMOL/L (3.5-5.1)
[2022-11-11 08:00] VITALS: RESP 16
[2022-11-11] MEDS: duloxetine 30mg CAPSULE.DR PO SCH (08:00)
[2022-11-11] MEDS: K and/or MAG REPLACEMENT MC SCH ×4 (08:00→20:00)
[2022-11-11] MEDS: pantoprazole 40MG/NS 100ML BAG 100 ML IV SCH (08:00)
[2022-11-11] MEDS: aspirin 81mg tab.chew PO SCH (08:00)
[2022-11-11] MEDS ORDERED: MVI, adult No.4 with vit. K 10 ML in dextrose 5% water 500ml 500 ML IV SCH ×2 (08:00)
[2022-11-11] MEDS: carvedilol 6.25mg tablet PO SCH ×2 (08:01→22:03)
[2022-11-11] MEDS: topiramate 100mg tablet PO SCH ×2 (08:01→22:02)
[2022-11-11] MEDS: flecainide 50mg tablet PO SCH ×2 (08:02→22:02)
[2022-11-11] MEDS: lisinopril 20mg tablet PO SCH ×2 (08:02→22:04)
[2022-11-11] MEDS: furosemide 20 MG/2 ML vial IV SCH (08:02)
[2022-11-11] MEDS: levetiracetam inj 750 MG in normal saline 100ml IV soln 100 ML IV SCH (08:03)
[2022-11-11] MEDS: enoxaparin 40mg/0.4ml syringe SQ SCH (08:03)
[2022-11-11] MEDS: diatr meglu/diatrizoate 30ml oral sol.-(3 dose) bottle PO SCH ×2 (08:04→10:54)
[2022-11-11] MEDS: potassium Cl 40MEQ/1/2NS 520ml 520 ML IV PRN ×2 (09:14→17:19)
--- NOTE | 2022-11-11 09:25 | NUR ---
Rapid Response A rapid response was called on this patient. On arrival to bedside, the patient was A/O x 4, pt talking, denies any chest pain. Margaret RN at bedside with updates. She has discussed case with resident. VS stable. NG was flushed with are several time to assure suctioning correctly. Pt condition has gradually since initial s/s of sleepiness. Interventions: None at this time. Margaret RN to order Keppra level if OK with resident. Rapid response outcome: PT remained in room.
[2022-11-11 10:00] VITALS: BP 121/59; PULSE 70; RESP 16; TEMP 97.7; O2SAT 99
[2022-11-11] MEDS ORDERED: DEXTROSE 15 GM of carb/4 tabs (each vial/BOTTLE has 4 tablets) PO PRN ×2 (10:45)
[2022-11-11] MEDS ORDERED: glucagon, human recombinant 1mg kit SUBCUT PRN (10:45)
[2022-11-11] MEDS ORDERED: levetiracetam inj 250 MG in normal saline 100ml IV soln 97.5 ML IV ONE (10:45)
[2022-11-11] MEDS ORDERED: dextrose 50%-water 50ml dispensing syringe IV PRN ×2 (10:45)
[2022-11-11] MEDS ORDERED: NORMAL SALINE IV ONE (11:30)
[2022-11-11] MEDS ORDERED: LEVETIRACETAM IV ONE (11:30)
[2022-11-11] MEDS ORDERED: iohexol 300mg/ml 100ml inj. ONE (11:33)
--- NOTE | 2022-11-11 16:00 | NUR ---
Dr Betts requested for nursing to pull patients NG tube out approx 2 " . Patient tolerated well NG pulled back approx 2" per MD request
[2022-11-11] MEDS: fat emulsion 20% inj. 100 ML IV SCH (17:06)
[2022-11-11] MEDS: ZINC/COPPER/MANGANESE/SELENIUM 1 ML, chromic chloride inj. 10 MCG in AA 5%/CALCIUM/LYTE... IV SCH (17:11)
[2022-11-11 18:00] VITALS: BP 139/61; PULSE 78; RESP 16; TEMP 97.5; O2SAT 93
--- NOTE | 2022-11-11 18:43 | NUR ---
Problems reprioritized. Patient report given, questions answered & plan of care reviewed with Aleksandra Lake RN.
--- NOTE | 2022-11-11 18:45 | NUR ---
Patient in room ORTHO 4014. I have received report from VALENTÍN DAVIS and had the opportunity to ask questions and assume patient care.
[2022-11-11] MEDS: SELENIUM IV SCH (19:00)
[2022-11-11] MEDS: [UNRECOGNIZED DRUG - OTHER] IV SCH (19:00)
[2022-11-11] MEDS: MANGANESE IV SCH (19:00)
[2022-11-11] MEDS: CHROMIC CHLORIDE IV SCH (19:00)
[2022-11-11] MEDS: ZINC IV SCH (19:00)
[2022-11-11] MEDS: COPPER IV SCH (19:00)
[2022-11-11 20:00] VITALS: RESP 16; O2SAT 93
[2022-11-11 22:00] VITALS: BP 128/56; PULSE 87; RESP 16; TEMP 98.5; O2SAT 98
[2022-11-11] MEDS: gabapentin 400mg capsule PO SCH (22:07)
[2022-11-11] MEDS: levetiracetam inj 1,000 MG in normal saline 100ml IV soln 100 ML IV SCH (22:07)
[2022-11-11] MEDS: insulin regular, human U-100 3ml vial - multi-dose SQ SCH (22:53)
[2022-11-11] MEDS: insulin glargine (Lantus) pen - multi-dose SQ SCH (22:54)
[2022-11-12] MEDS: acetaminophen 325mg/10.15ml oral unit dose solution PO SCH ×2 (02:00→08:00)
[2022-11-12] MEDS: insulin regular, human U-100 3ml vial - multi-dose SQ SCH ×4 (03:26→20:17)
[2022-11-12 06:00] VITALS: BP 131/69; PULSE 81; RESP 16; TEMP 99.4; O2SAT 98
--- NOTE | 2022-11-12 06:30 | NUR ---
Problems reprioritized. Patient report given, questions answered & plan of care reviewed with VALENTÍN DAVIS.
--- NOTE | 2022-11-12 06:37 | NUR ---
Patient in room ORTHO 4014. I have received report from Aleksandra Lake RN and had the opportunity to ask questions and assume patient care.
[2022-11-12 06:56] LABS: ALANINE AMINOTRANSFERASE 16 U/L (12-78); ALBUMIN 2.5 G/DL (3.4-5.0); ALBUMIN/GLOBULIN RATIO 0.8 (1.1-1.5); ALKALINE PHOSPHATASE 58 IU/L (46-116); ANION GAP 5 (8-16); ASPARTATE AMINO TRANSFERASE 14 U/L (10-37); BILIRUBIN,TOTAL 0.2 MG/DL (0.1-1.0); BLOOD UREA NITROGEN 19 MG/DL (7-18); CALCIUM 8.9 MG/DL (8.5-10.1); CHLORIDE 103 MMOL/L (99-107); CREATININE 0.73 MG/DL (0.40-0.90); GLUCOSE 135 MG/DL (70-104); PHOSPHORUS 2.7 MG/DL (2.3-4.5); POTASSIUM 3.4 MMOL/L (3.5-5.1); PREALBUMIN 17.2 MG/DL (19-36); SODIUM 135 MMOL/L (135-145); TOTAL CARBON DIOXIDE 27.5 MMOL/L (24-32); TOTAL PROTEIN 5.6 G/DL (6.4-8.2); TRIGLYCERIDES 188 MG/DL (20-135); eCRCL 54 ML/MIN; eGFR 78 ML/MIN
[2022-11-12 08:00] VITALS: RESP 18
[2022-11-12] MEDS: K and/or MAG REPLACEMENT MC SCH ×4 (08:00→20:00)
[2022-11-12] MEDS: pantoprazole 40MG/NS 100ML BAG 100 ML IV SCH (08:20)
[2022-11-12] MEDS: levetiracetam inj 1,000 MG in normal saline 100ml IV soln 100 ML IV SCH ×2 (08:20→08:43)
[2022-11-12] MEDS: flecainide 50mg tablet PO SCH ×2 (08:43→19:43)
[2022-11-12] MEDS: duloxetine 30mg CAPSULE.DR PO SCH (08:43)
[2022-11-12] MEDS: aspirin 81mg tab.chew PO SCH (08:43)
[2022-11-12] MEDS: lisinopril 20mg tablet PO SCH ×2 (08:44→19:43)
[2022-11-12] MEDS: furosemide 20 MG/2 ML vial IV SCH (08:44)
[2022-11-12] MEDS: carvedilol 6.25mg tablet PO SCH ×2 (08:44→19:43)
[2022-11-12] MEDS: topiramate 100mg tablet PO SCH ×2 (08:44→20:22)
[2022-11-12] MEDS: enoxaparin 40mg/0.4ml syringe SQ SCH (08:45)
[2022-11-12 10:00] VITALS: BP 120/57; PULSE 65; RESP 18; TEMP 97.8; O2SAT 95
--- NOTE | 2022-11-12 10:00 | NUR ---
Dr Faye rounding on wants nursing to clamp patients tubing for 4-6 hours to see if patient tolerates without getting nauseated, Dr Faye also ordered Reglan IV Q6H scheduled- Dr Faye is aware that Dr Betts did not want patient on Reglan , Dr Faye wants order at this time.
[2022-11-12] MEDS: potassium Cl 40MEQ/1/2NS 520ml 520 ML IV PRN (11:21)
[2022-11-12] MEDS: fat emulsion 20% inj. 100 ML IV SCH (17:22)
[2022-11-12 18:00] VITALS: BP 141/66; PULSE 73; RESP 15; TEMP 98.1; O2SAT 100
--- NOTE | 2022-11-12 18:37 | NUR ---
Problems reprioritized. Patient report given, questions answered & plan of care reviewed with Prudence RN. Prudence aware K+ needs to be drawn from line
--- NOTE | 2022-11-12 18:51 | NUR ---
Patient in room ORTHO 4014. I have received report from VALENTÍN DAVIS and had the opportunity to ask questions and assume patient care.
[2022-11-12] MEDS: ZINC/COPPER/MANGANESE/SELENIUM 1 ML, chromic chloride inj. 10 MCG in AA 5%/CALCIUM/LYTE... IV SCH (19:44)
[2022-11-12 20:00] VITALS: RESP 15; O2SAT 100
[2022-11-12] MEDS: metoclopramide 5 mg/ml inj IV SCH (20:00)
[2022-11-12] MEDS: gabapentin 400mg capsule PO SCH (20:22)
[2022-11-12 22:00] VITALS: BP 135/58; PULSE 65; RESP 16; TEMP 98.9; O2SAT 97
[2022-11-12] MEDS: insulin glargine (Lantus) pen - multi-dose SQ SCH (23:10)
[2022-11-13] MEDS: metoclopramide 5 mg/ml inj IV SCH (02:00)
[2022-11-13] MEDS: insulin regular, human U-100 3ml vial - multi-dose SQ SCH ×4 (02:31→21:33)
[2022-11-13 06:00] VITALS: BP 134/68; PULSE 66; RESP 20; TEMP 98.7; O2SAT 100
--- NOTE | 2022-11-13 06:31 | NUR ---
Problems reprioritized. Patient report given, questions answered & plan of care reviewed with VALENTÍN DAVIS.
[2022-11-13] MEDS: normal saline 1000ml 1,000 ML IV SCH (06:33)
--- NOTE | 2022-11-13 06:44 | NUR ---
Patient in room ORTHO 4014. I have received report from Quiana DAVIS and had the opportunity to ask questions and assume patient care.
[2022-11-13 06:52] LABS: ALANINE AMINOTRANSFERASE 16 U/L (12-78); ALBUMIN 2.4 G/DL (3.4-5.0); ALBUMIN/GLOBULIN RATIO 0.8 (1.1-1.5); ALKALINE PHOSPHATASE 57 IU/L (46-116); ANION GAP 7 (8-16); ASPARTATE AMINO TRANSFERASE 14 U/L (10-37); BILIRUBIN,TOTAL 0.2 MG/DL (0.1-1.0); BLOOD UREA NITROGEN 17 MG/DL (7-18); BUN/CREATININE RATIO 27.4 (10.0-20.0); CALCIUM 8.9 MG/DL (8.5-10.1); CHLORIDE 105 MMOL/L (99-107); CREATININE 0.62 MG/DL (0.40-0.90); GLUCOSE 141 MG/DL (70-104); PHOSPHORUS 3.1 MG/DL (2.3-4.5); POTASSIUM 3.6 MMOL/L (3.5-5.1); SODIUM 136 MMOL/L (135-145); TOTAL CARBON DIOXIDE 24.1 MMOL/L (24-32); TOTAL PROTEIN 5.6 G/DL (6.4-8.2); eCRCL 64 ML/MIN; eGFR > 90 ML/MIN
[2022-11-13] MEDS ORDERED: pantoprazole 40mg Tablet.DR PO SCH (07:30)
[2022-11-13 08:00] VITALS: RESP 16
[2022-11-13] MEDS: K and/or MAG REPLACEMENT MC SCH ×4 (08:00→20:00)
[2022-11-13] MEDS: levetiracetam inj 1,000 MG in normal saline 100ml IV soln 100 ML IV SCH ×2 (08:06→20:34)
[2022-11-13] MEDS: lisinopril 20mg tablet PO SCH ×2 (09:45→20:49)
[2022-11-13] MEDS: carvedilol 6.25mg tablet PO SCH ×2 (09:45→20:48)
[2022-11-13] MEDS: acetaminophen 325mg/10.15ml oral unit dose solution PO PRN ×2 (09:45→19:25)
[2022-11-13] MEDS: aspirin 81mg tab.chew PO SCH (09:46)
[2022-11-13] MEDS: flecainide 50mg tablet PO SCH ×2 (09:46→20:48)
[2022-11-13] MEDS: lansoprazole 15mg solutab NG SCH (09:46)
[2022-11-13] MEDS: furosemide 20 MG/2 ML vial IV SCH (09:46)
[2022-11-13] MEDS: topiramate 100mg tablet PO SCH (09:46)
[2022-11-13] MEDS: duloxetine 30mg CAPSULE.DR PO SCH (09:46)
[2022-11-13] MEDS: enoxaparin 40mg/0.4ml syringe SQ SCH (09:47)
[2022-11-13 11:02] VITALS: BP 127/50; PULSE 72; RESP 15; TEMP 98.4; O2SAT 97
[2022-11-13] MEDS: fat emulsion 20% inj. 100 ML IV SCH (17:04)
[2022-11-13 18:00] VITALS: BP 153/53; PULSE 66; RESP 13; TEMP 98.1; O2SAT 100
--- NOTE | 2022-11-13 18:38 | NUR ---
Problems reprioritized. Patient report given, questions answered & plan of care reviewed with Tariq DAVIS.
[2022-11-13] MEDS: metoclopramide 5 mg/ml inj IV PRN (19:14)
[2022-11-13 20:00] VITALS: RESP 16; O2SAT 97
[2022-11-13] MEDS: gabapentin 400mg capsule PO SCH (20:48)
[2022-11-13] MEDS: topiramate 25mg tablet PO SCH (20:54)
[2022-11-13] MEDS: insulin glargine (Lantus) pen - multi-dose SQ SCH (21:37)
[2022-11-13 22:00] VITALS: BP 166/68; PULSE 77; RESP 16; TEMP 100; O2SAT 97
[2022-11-14] MEDS: ZINC/COPPER/MANGANESE/SELENIUM 1 ML, chromic chloride inj. 10 MCG in AA 5%/CALCIUM/LYTE... IV SCH (01:49)
[2022-11-14] MEDS: insulin regular, human U-100 3ml vial - multi-dose SQ SCH (02:04)
[2022-11-14] MEDS: metoclopramide 5 mg/ml inj IV PRN ×2 (02:10→12:25)
[2022-11-14 05:10] LABS: ALANINE AMINOTRANSFERASE 15 U/L (12-78); ALBUMIN 2.4 G/DL (3.4-5.0); ALBUMIN/GLOBULIN RATIO 0.7 (1.1-1.5); ALKALINE PHOSPHATASE 64 IU/L (46-116); ANION GAP 8 (8-16); ASPARTATE AMINO TRANSFERASE 12 U/L (10-37); BILIRUBIN,TOTAL 0.2 MG/DL (0.1-1.0); BLOOD UREA NITROGEN 16 MG/DL (7-18); BUN/CREATININE RATIO 23.9 (10.0-20.0); CALCIUM 8.6 MG/DL (8.5-10.1); CHLORIDE 102 MMOL/L (99-107); CREATININE 0.67 MG/DL (0.40-0.90); GLUCOSE 186 MG/DL (70-104); PHOSPHORUS 2.7 MG/DL (2.3-4.5); POTASSIUM 3.8 MMOL/L (3.5-5.1); PREALBUMIN 17.2 MG/DL (19-36); SODIUM 133 MMOL/L (135-145); TOTAL CARBON DIOXIDE 22.8 MMOL/L (24-32); TOTAL PROTEIN 5.7 G/DL (6.4-8.2); TRIGLYCERIDES 206 MG/DL (20-135); eCRCL 59 ML/MIN; eGFR 86 ML/MIN
--- NOTE | 2022-11-14 06:30 | NUR ---
Problems reprioritized. Patient report given, questions answered & plan of care reviewed with RYAN LAURA.
[2022-11-14 06:36] VITALS: BP 177/71; PULSE 74; RESP 16; TEMP 99.3; O2SAT 98
--- NOTE | 2022-11-14 06:37 | NUR ---
Patient in room ORTHO 4014. I have received report from Tariq DAVIS and had the opportunity to ask questions and assume patient care.
[2022-11-14] MEDS: K and/or MAG REPLACEMENT MC SCH ×2 (08:00→20:00)
[2022-11-14 08:30] VITALS: RESP 18
[2022-11-14] MEDS: aspirin 81mg tab.chew PO SCH (09:08)
[2022-11-14] MEDS: duloxetine 30mg CAPSULE.DR PO SCH (09:08)
[2022-11-14] MEDS: carvedilol 6.25mg tablet PO SCH ×2 (09:08→19:57)
[2022-11-14] MEDS: lansoprazole 15mg solutab NG SCH (09:08)
[2022-11-14] MEDS: flecainide 50mg tablet PO SCH ×2 (09:10→19:57)
[2022-11-14] MEDS: lisinopril 20mg tablet PO SCH ×2 (09:10→19:58)
[2022-11-14] MEDS: topiramate 25mg tablet PO SCH ×2 (09:12→19:58)
[2022-11-14] MEDS: enoxaparin 40mg/0.4ml syringe SQ SCH (09:12)
[2022-11-14] MEDS: furosemide 20 MG/2 ML vial IV SCH ×2 (09:25→19:59)
[2022-11-14] MEDS: levetiracetam inj 1,000 MG in normal saline 100ml IV soln 100 ML IV SCH (09:25)
[2022-11-14 10:00] VITALS: BP 101/54; PULSE 63; RESP 18; TEMP 98.3; O2SAT 97
--- NOTE | 2022-11-14 10:37 | NUR ---
Wean patient off TPN per MD orders , Turned patients TPN rate down to 35ml/hr
--- NOTE | 2022-11-14 13:39 | NUR ---
F/u 11/14: Pt tolerating TPN at goal though has now started weaning today at hospitalist request per RN this AM. Pt advanced to clear liquids 11/13 WS PO ~25% first two meals though actually has only eaten two jellos and a james nichole per RN today. ARUNA d/w RN recommends continuing TPN until diet advances and adequate nutrition intake assured since pt previously went 7 days without significant nutrition and continues to have poor intake. ARUNA paged MD regarding this. ARUNA paged MD regarding recs to continue PN. Pt is now having stools per RN LBM 11/14 receiving PRN regulan Q6H in EMR. Will monitor for further nutrition intervention needs this admit. Recommendations: 1) Advance diet as medically indicated to low-residue 2) If pt to remain on liquids diet w/ poor acceptance; continue TPN for nutrition repletion until adequate PO assured. Initial 7 days almost no nutrition this admit. 3) If TPN; 2:1 Clinimix-E 07/02 with 70 mL/hr goal rate and additional 100 mL 20% ILE to run at 8.33 mL/hr for 12 hours/day. Would provide 1680 mL volume/day, 84 g AA, 336 g dext (2.38 mg/kg/min GIR), and 1678 kcal 4) IF TPN; Prealbumin and TG q Monday/ 5) Monitor for ONS needs with diet advancement 6) Bowel care per physician 7) Daily scaled weights Addendum: 11/14/22 at [address] Amended: Links added.
--- NOTE | 2022-11-14 16:07 | NUR ---
Dc'd TPN per MD orders
[2022-11-14 18:00] VITALS: BP 106/51; PULSE 69; RESP 20; TEMP 97.9; O2SAT 99
--- NOTE | 2022-11-14 18:17 | NUR ---
Problems reprioritized. Patient report given, questions answered & plan of care reviewed with Tariq DAVIS.
[2022-11-14] MEDS: levetiracetam 250mg tablet PO SCH (19:57)
[2022-11-14] MEDS: gabapentin 400mg capsule PO SCH (19:59)
[2022-11-14 20:00] VITALS: RESP 20; O2SAT 99
[2022-11-14 22:00] VITALS: BP 114/48; PULSE 62; RESP 15; TEMP 98.7; O2SAT 99
[2022-11-15] VITALS (8 sets, daily range): BP systolic 96–128; BP diastolic 41–60; PULSE 10–71; RESP 10–20; TEMP 97.8–99.1; O2SAT 96–100
[2022-11-15 05:07] LABS: ALANINE AMINOTRANSFERASE 17 U/L (12-78); ALBUMIN 2.4 G/DL (3.4-5.0); ALBUMIN/GLOBULIN RATIO 0.8 (1.1-1.5); ALKALINE PHOSPHATASE 63 IU/L (46-116); ANION GAP 7 (8-16); ASPARTATE AMINO TRANSFERASE 13 U/L (10-37); BILIRUBIN,TOTAL 0.2 MG/DL (0.1-1.0); BLOOD UREA NITROGEN 18 MG/DL (7-18); BUN/CREATININE RATIO 21.2 (10.0-20.0); CHLORIDE 105 MMOL/L (99-107); CREATININE 0.85 MG/DL (0.40-0.90); GLUCOSE 92 MG/DL (70-104); PHOSPHORUS 3.8 MG/DL (2.3-4.5); POTASSIUM 3.9 MMOL/L (3.5-5.1); SODIUM 134 MMOL/L (135-145); TOTAL CARBON DIOXIDE 22.5 MMOL/L (24-32); TOTAL PROTEIN 5.6 G/DL (6.4-8.2); eCRCL 47 ML/MIN; eGFR 65 ML/MIN
--- NOTE | 2022-11-15 06:37 | NUR ---
Problems reprioritized. Patient report given, questions answered & plan of care reviewed with RYAN FONG.
--- NOTE | 2022-11-15 07:56 | NUR ---
PAGER ID: [phone] MESSAGE: [id number] Lacie seizure, witnessed by Dr Betts & myself [id number] AJIT
[2022-11-15] MEDS: K and/or MAG REPLACEMENT MC SCH ×2 (08:00→20:00)
[2022-11-15] MEDS: levetiracetam 250mg tablet PO SCH ×2 (08:21→21:15)
[2022-11-15] MEDS: carvedilol 6.25mg tablet PO SCH ×2 (08:21→21:14)
[2022-11-15] MEDS: duloxetine 30mg CAPSULE.DR PO SCH (08:22)
[2022-11-15] MEDS: lisinopril 20mg tablet PO SCH ×2 (08:22→21:16)
[2022-11-15] MEDS: flecainide 50mg tablet PO SCH ×2 (08:24→21:15)
[2022-11-15] MEDS: aspirin 81mg tab.chew PO SCH (08:24)
[2022-11-15] MEDS: furosemide 20 MG/2 ML vial IV SCH (08:27)
[2022-11-15] MEDS: lansoprazole 15mg solutab NG SCH (08:29)
[2022-11-15] MEDS: topiramate 25mg tablet PO SCH (08:34)
[2022-11-15] MEDS: enoxaparin 40mg/0.4ml syringe SQ SCH (08:43)
[2022-11-15] MEDS: normal saline 1000ml 1,000 ML IV SCH (11:40)
--- NOTE | 2022-11-15 14:48 | NUR ---
REMOVED JEFFERY WITH STUDENT NURSE AT 4450 -3
[2022-11-15] MEDS ORDERED: furosemide 20MG tablet PO ONE (18:30)
[2022-11-15] MEDS: topiramate 100mg tablet PO SCH (21:16)
[2022-11-15] MEDS: gabapentin 400mg capsule PO SCH (21:16)
[2022-11-16 05:39] LABS: ALANINE AMINOTRANSFERASE 17 U/L (12-78); ALBUMIN 2.4 G/DL (3.4-5.0); ALBUMIN/GLOBULIN RATIO 0.7 (1.1-1.5); ALKALINE PHOSPHATASE 64 IU/L (46-116); ANION GAP 9 (8-16); ASPARTATE AMINO TRANSFERASE 10 U/L (10-37); BILIRUBIN,TOTAL 0.3 MG/DL (0.1-1.0); BLOOD UREA NITROGEN 16 MG/DL (7-18); BUN/CREATININE RATIO 19.5 (10.0-20.0); CALCIUM 9.2 MG/DL (8.5-10.1); CHLORIDE 104 MMOL/L (99-107); CREATININE 0.82 MG/DL (0.40-0.90); GLUCOSE 102 MG/DL (70-104); POTASSIUM 3.5 MMOL/L (3.5-5.1); SODIUM 135 MMOL/L (135-145); TOTAL CARBON DIOXIDE 22.1 MMOL/L (24-32); TOTAL PROTEIN 5.7 G/DL (6.4-8.2); eCRCL 48 ML/MIN; eGFR 68 ML/MIN
--- NOTE | 2022-11-16 06:15 | NUR ---
Problems reprioritized. Patient report given, questions answered & plan of care reviewed with RONALDO DAVIS.
--- NOTE | 2022-11-16 06:30 | NUR ---
Problems reprioritized. Patient report given, questions answered & plan of care reviewed with RYAN VIVAR.
[2022-11-16] MEDS: K and/or MAG REPLACEMENT MC SCH ×2 (07:42→20:00)
[2022-11-16] MEDS: enoxaparin 40mg/0.4ml syringe SQ SCH (07:49)
[2022-11-16] MEDS: levetiracetam 250mg tablet PO SCH ×2 (07:49→21:16)
[2022-11-16] MEDS: flecainide 50mg tablet PO SCH ×2 (07:50→21:14)
[2022-11-16] MEDS: lansoprazole 15mg solutab NG SCH (07:50)
[2022-11-16] MEDS: aspirin 81mg tab.chew PO SCH (07:50)
[2022-11-16] MEDS: carvedilol 6.25mg tablet PO SCH ×2 (07:51→21:16)
[2022-11-16] MEDS: lisinopril 20mg tablet PO SCH ×2 (07:52→21:15)
[2022-11-16] MEDS: topiramate 100mg tablet PO SCH ×2 (07:52→21:15)
[2022-11-16] MEDS: duloxetine 30mg CAPSULE.DR PO SCH (07:55)
[2022-11-16 08:00] VITALS: BP 103/84; PULSE 56; RESP 14; TEMP 98.1; O2SAT 98
[2022-11-16 10:26] VITALS: BP 103/84; PULSE 56; RESP 14; TEMP 98.1; O2SAT 98
[2022-11-16 12:20] LABS: C DIFF ANTIGEN POSITIVE (NEGATIVE); C DIFF SPECIMEN=DIARRHEA? ACCEPTABLE; C DIFFICILE TOXINS A&B POSITIVE (Neg)
[2022-11-16] MEDS: vancomycin 125mg/5ml ORAL solution 5ml UD oral syringe PO SCH ×2 (14:00→21:16)
[2022-11-16 18:00] VITALS: BP 105/45; PULSE 60; RESP 16; TEMP 98.1; O2SAT 97
--- NOTE | 2022-11-16 18:11 | NUR ---
Problems reprioritized. Patient report given, questions answered & plan of care reviewed with Devin RUSSELL.
--- NOTE | 2022-11-16 18:35 | NUR ---
Report received from Carmella DAVIS and assumed care of patient
--- NOTE | 2022-11-16 20:50 | NUR ---
Agree with Ger Sánchez Lvn physical assessment.
[2022-11-16] MEDS: gabapentin 400mg capsule PO SCH (21:14)
[2022-11-16] MEDS: acetaminophen 325mg tablet PO PRN (21:17)
[2022-11-16 22:00] VITALS: BP 127/59; PULSE 79; RESP 18; TEMP 98.1; O2SAT 98
[2022-11-17] MEDS: vancomycin 125mg/5ml ORAL solution 5ml UD oral syringe PO SCH ×4 (02:15→20:18)
[2022-11-17 06:00] VITALS: BP 100/44; PULSE 68; RESP 16; TEMP 98.8; O2SAT 96
[2022-11-17 06:28] LABS: ALANINE AMINOTRANSFERASE 17 U/L (12-78); ALBUMIN 2.3 G/DL (3.4-5.0); ALBUMIN/GLOBULIN RATIO 0.7 (1.1-1.5); ALKALINE PHOSPHATASE 58 IU/L (46-116); ANION GAP 7 (8-16); ASPARTATE AMINO TRANSFERASE 9 U/L (10-37); BILIRUBIN,TOTAL 0.3 MG/DL (0.1-1.0); BLOOD UREA NITROGEN 13 MG/DL (7-18); BUN/CREATININE RATIO 17.6 (10.0-20.0); CALCIUM 9.1 MG/DL (8.5-10.1); CHLORIDE 105 MMOL/L (99-107); CREATININE 0.74 MG/DL (0.40-0.90); GLUCOSE 95 MG/DL (70-104); PHOSPHORUS 4.4 MG/DL (2.3-4.5); POTASSIUM 3.7 MMOL/L (3.5-5.1); PREALBUMIN 15.2 MG/DL (19-36); SODIUM 136 MMOL/L (135-145); TOTAL CARBON DIOXIDE 23.6 MMOL/L (24-32); TOTAL PROTEIN 5.5 G/DL (6.4-8.2); TRIGLYCERIDES 170 MG/DL (20-135); eCRCL 54 ML/MIN; eGFR 76 ML/MIN
[2022-11-17 08:00] VITALS: RESP 16; O2SAT 96
[2022-11-17] MEDS: K and/or MAG REPLACEMENT MC SCH ×2 (08:00→20:33)
[2022-11-17] MEDS: carvedilol 6.25mg tablet PO SCH ×2 (08:00→20:18)
[2022-11-17] MEDS: enoxaparin 40mg/0.4ml syringe SQ SCH (08:28)
[2022-11-17] MEDS: levetiracetam 250mg tablet PO SCH ×2 (08:28→20:19)
[2022-11-17] MEDS: flecainide 50mg tablet PO SCH ×2 (08:29→20:18)
[2022-11-17] MEDS: lansoprazole 15mg solutab NG SCH (08:29)
[2022-11-17] MEDS: aspirin 81mg tab.chew PO SCH (08:29)
[2022-11-17] MEDS: duloxetine 30mg CAPSULE.DR PO SCH (08:30)
[2022-11-17] MEDS: topiramate 100mg tablet PO SCH ×2 (08:31→20:32)
[2022-11-17] MEDS: lisinopril 20mg tablet PO SCH ×2 (08:36→20:18)
[2022-11-17 10:00] VITALS: BP 120/60; PULSE 58; RESP 14; TEMP 98; O2SAT 98
[2022-11-17] MEDS: normal saline 1000ml 1,000 ML IV SCH (11:40)
[2022-11-17] MEDS: acetaminophen 325mg tablet PO PRN ×2 (11:56→20:25)
--- NOTE | 2022-11-17 13:27 | NUR ---
peripheral IV d/c'd, line would not flush, cannula intact but severely kinked. Addendum: 11/17/22 at 1329 by Naveen QUEVEDO Amended: Links added.
[2022-11-17 18:00] VITALS: BP 135/68; PULSE 70; RESP 17; TEMP 98.2; O2SAT 100
--- NOTE | 2022-11-17 18:02 | NUR ---
Problems reprioritized. Patient report given, questions answered & plan of care reviewed with Prudence RN.
--- NOTE | 2022-11-17 19:00 | NUR ---
Patient in room ORTHO 4014. I have received report from CB DAVIS and had the opportunity to ask questions and assume patient care.
[2022-11-17 20:00] VITALS: RESP 17; O2SAT 100
[2022-11-17] MEDS: gabapentin 400mg capsule PO SCH (20:17)
[2022-11-17 22:00] VITALS: BP 104/50; PULSE 64; RESP 16; TEMP 97.9; O2SAT 98
[2022-11-18] MEDS: vancomycin 125mg/5ml ORAL solution 5ml UD oral syringe PO SCH ×4 (02:10→20:02)
[2022-11-18] MEDS: acetaminophen 325mg tablet PO PRN ×2 (04:51→12:47)
--- NOTE | 2022-11-18 06:15 | NUR ---
Patient in room ORTHO 4014. I have received report from Quiana DAVIS and had the opportunity to ask questions and assume patient care.
[2022-11-18 06:38] LABS: ALANINE AMINOTRANSFERASE 17 U/L (12-78); ALBUMIN 2.5 G/DL (3.4-5.0); ALBUMIN/GLOBULIN RATIO 0.8 (1.1-1.5); ALKALINE PHOSPHATASE 62 IU/L (46-116); ANION GAP 7 (8-16); ASPARTATE AMINO TRANSFERASE 9 U/L (10-37); BILIRUBIN,TOTAL 0.2 MG/DL (0.1-1.0); BLOOD UREA NITROGEN 9 MG/DL (7-18); BUN/CREATININE RATIO 12.5 (10.0-20.0); CALCIUM 9.6 MG/DL (8.5-10.1); CHLORIDE 106 MMOL/L (99-107); CREATININE 0.72 MG/DL (0.40-0.90); GLUCOSE 89 MG/DL (70-104); PHOSPHORUS 4.6 MG/DL (2.3-4.5); POTASSIUM 3.7 MMOL/L (3.5-5.1); SODIUM 137 MMOL/L (135-145); TOTAL CARBON DIOXIDE 23.9 MMOL/L (24-32); TOTAL PROTEIN 5.7 G/DL (6.4-8.2); eCRCL 55 ML/MIN; eGFR 79 ML/MIN
[2022-11-18] MEDS: metoclopramide 5 mg/ml inj IV PRN (07:03)
[2022-11-18 08:00] VITALS: RESP 14; O2SAT 98
[2022-11-18] MEDS: K and/or MAG REPLACEMENT MC SCH ×2 (08:00→20:00)
[2022-11-18] MEDS: carvedilol 6.25mg tablet PO SCH ×2 (08:00→20:02)
[2022-11-18] MEDS: lisinopril 20mg tablet PO SCH ×2 (08:00→20:01)
[2022-11-18] MEDS: levetiracetam 250mg tablet PO SCH ×2 (08:36→20:02)
[2022-11-18] MEDS: duloxetine 30mg CAPSULE.DR PO SCH (08:36)
[2022-11-18] MEDS: topiramate 100mg tablet PO SCH ×2 (08:36→20:02)
[2022-11-18] MEDS: aspirin 81mg tab.chew PO SCH (08:36)
[2022-11-18] MEDS: enoxaparin 40mg/0.4ml syringe SQ SCH (08:36)
[2022-11-18] MEDS: flecainide 50mg tablet PO SCH ×2 (08:36→20:01)
[2022-11-18 08:56] LABS: BASOPHILS # (AUTO) 0.1 X10'3 (0-0.2); BASOPHILS % (AUTO) 0.8 % (0-1); EOSINOPHILS # (AUTO) 0.2 X10'3 (0-0.9); EOSINOPHILS % (AUTO) 2.5 % (0-6); HEMATOCRIT 29.4 % (35.0-45.0); HEMOGLOBIN 9.8 g/dl (12.0-16.0); LYMPHOCYTES # (AUTO) 1.1 X10'3 (1.1-4.8); LYMPHOCYTES % (AUTO) 13.5 % (21-51); MEAN CORPUSCULAR HEMOGLOBIN 29.9 PG (27.0-31.0); MEAN CORPUSCULAR HGB CONC 33.2 g/dL (33.0-36.5); MEAN CORPUSCULAR VOLUME 90.2 FL (78-98); MEAN PLATELET VOLUME 7.8 FL (7.4-10.4); MONOCYTES # (AUTO) 1.1 X10'3 (0-0.9); MONOCYTES % (AUTO) 13.9 % (2-12); NEUTROPHILS # (AUTO) 5.7 X10'3 (1.8-7.7); NEUTROPHILS % (AUTO) 69.3 % (42-75); PLATELET COUNT 255 X10'3 (140-440); RED BLOOD COUNT 3.26 X10'6 (4.20-5.60); RED CELL DISTRIBUTION WIDTH 13.9 % (11.5-14.5); WHITE BLOOD COUNT 8.2 X10'3 (4.5-11.0)
--- NOTE | 2022-11-18 09:02 | NUR ---
rm [id number] radhames dunn ext [phone] Pt's sister has numerous questions and is feeling as though this is an unsafe discharge. Per the pt you can speak to her sister chanda at [phone]. Thanks Kateryna
--- NOTE | 2022-11-18 13:46 | NUR ---
PRESSURE ULCER EDUCATION: DEFINITION: A pressure ulcer is an area of skin that breaks down when you stay in one position too long. The constant pressure against the skin reduces the blood flow to that area and the affected tissue dies. CAUSES: "Being bedridden or in a wheelchair "Fragile skin "Having a chronic condition, such as diabetes or vascular disease "Inability to move certain parts of your body without assistance "Older age "Incontinence of urine or stool SYMPTOMS: "A reddened area that DOES NOT turn white when pressed on - this can be the beginning of a pressure ulcer "A blister, deep sore or a crater - these can be advanced pressure ulcers FIRST AID: "Relieve the pressure on this area "Keep the area clean and dry "Call your primary doctor if you see any of the above symptoms "DO NOT massage the area "DO NOT use a donut shaped or ring shaped pillow- these actually interfere with the blood flow and cause complications PREVENTION: "Check for pressure ulcers everyday "Change position at least every two hours to relieve pressure "Use items that help relieve pressure- pillows, sheepskin, foam padding, and powders. "Keep skin clean and dry "Eat healthy well balanced meals "Exercise daily IF YOU SEE ANY OF THESE SYMPTOMS WHILE IN THE HOSPITAL - TELL YOUR NURSE IMMEDIATELY. IF YOU SEE ANY OF THESE SYMPTOMS WHILE AT HOME OR HAVE ANY QUESTIONS OR CONCERNS ABOUT PRESSURE ULCERS - CALL YOUR PRIMARY DOCTOR IMMEDIATELY. Addendum: 11/18/22 at 1346 by Carmella Cavazos RN Amended: Links added.
[2022-11-18] MEDS: normal saline 1000ml 1,000 ML IV SCH (13:57)
[2022-11-18] MEDS: vancomycin/NS 1 GM ADD-VANTAGE 250 ML IV SCH (13:57)
[2022-11-18] MEDS: HYDROcodone/acetaminophen 5mg/325mg tablet PO PRN ×2 (16:32→21:54)
[2022-11-18 18:00] VITALS: BP 110/48; PULSE 60; RESP 14; TEMP 98; O2SAT 100
--- NOTE | 2022-11-18 18:15 | NUR ---
Problems reprioritized. Patient report given, questions answered & plan of care reviewed with Prudence RN.
[2022-11-18 20:00] VITALS: RESP 14; O2SAT 100
[2022-11-18] MEDS: gabapentin 400mg capsule PO SCH (20:37)
[2022-11-18 22:00] VITALS: BP 112/49; PULSE 53; RESP 16; TEMP 98.3; O2SAT 99
[2022-11-19] MEDS: vancomycin/NS 1 GM ADD-VANTAGE 250 ML IV SCH ×2 (00:54→13:13)
[2022-11-19] MEDS: vancomycin 125mg/5ml ORAL solution 5ml UD oral syringe PO SCH ×3 (02:02→14:07)
[2022-11-19 06:00] VITALS: BP 118/52; PULSE 58; RESP 16; TEMP 98.2; O2SAT 99
--- NOTE | 2022-11-19 06:15 | NUR ---
Patient in room ORTHO 4014. I have received report from Quiana DAVIS and had the opportunity to ask questions and assume patient care.
--- NOTE | 2022-11-19 06:22 | NUR ---
Problems reprioritized. Patient report given, questions answered & plan of care reviewed with GARRISON BETH.
[2022-11-19] MEDS: K and/or MAG REPLACEMENT MC SCH (07:16)
[2022-11-19] MEDS: flecainide 50mg tablet PO SCH (07:40)
[2022-11-19] MEDS: duloxetine 30mg CAPSULE.DR PO SCH (07:40)
[2022-11-19] MEDS: carvedilol 6.25mg tablet PO SCH (07:40)
[2022-11-19] MEDS: levetiracetam 250mg tablet PO SCH (07:40)
[2022-11-19] MEDS: aspirin 81mg tab.chew PO SCH (07:40)
[2022-11-19 07:41] VITALS: RESP 16; O2SAT 99
[2022-11-19] MEDS: topiramate 100mg tablet PO SCH (07:41)
[2022-11-19] MEDS: lisinopril 20mg tablet PO SCH (07:41)
[2022-11-19] MEDS: enoxaparin 40mg/0.4ml syringe SQ SCH (07:42)
[2022-11-19] MEDS: HYDROcodone/acetaminophen 5mg/325mg tablet PO PRN (07:42)
[2022-11-19 08:34] LABS: BASOPHILS % (AUTO) 0.8 % (0-1); EOSINOPHILS # (AUTO) 0.2 X10'3 (0-0.9); EOSINOPHILS % (AUTO) 3.8 % (0-6); HEMATOCRIT 32.4 % (35.0-45.0); HEMOGLOBIN 10.4 g/dl (12.0-16.0); LYMPHOCYTES # (AUTO) 0.8 X10'3 (1.1-4.8); LYMPHOCYTES % (AUTO) 13.5 % (21-51); MEAN CORPUSCULAR HEMOGLOBIN 29.5 PG (27.0-31.0); MEAN CORPUSCULAR HGB CONC 32.2 g/dL (33.0-36.5); MEAN CORPUSCULAR VOLUME 91.5 FL (78-98); MEAN PLATELET VOLUME 7.3 FL (7.4-10.4); MONOCYTES # (AUTO) 0.7 X10'3 (0-0.9); MONOCYTES % (AUTO) 11.9 % (2-12); NEUTROPHILS # (AUTO) 4.4 X10'3 (1.8-7.7); PLATELET COUNT 268 X10'3 (140-440); RED BLOOD COUNT 3.54 X10'6 (4.20-5.60); RED CELL DISTRIBUTION WIDTH 13.9 % (11.5-14.5); WHITE BLOOD COUNT 6.2 X10'3 (4.5-11.0)
[2022-11-19 09:10] LABS: ALANINE AMINOTRANSFERASE 14 U/L (12-78); ALBUMIN 2.5 G/DL (3.4-5.0); ALBUMIN/GLOBULIN RATIO 0.7 (1.1-1.5); ALKALINE PHOSPHATASE 60 IU/L (46-116); ANION GAP 7 (8-16); ASPARTATE AMINO TRANSFERASE 10 U/L (10-37); BILIRUBIN,TOTAL 0.2 MG/DL (0.1-1.0); BLOOD UREA NITROGEN 7 MG/DL (7-18); BUN/CREATININE RATIO 10.4 (10.0-20.0); CALCIUM 9.3 MG/DL (8.5-10.1); CHLORIDE 107 MMOL/L (99-107); CREATININE 0.67 MG/DL (0.40-0.90); GLUCOSE 88 MG/DL (70-104); PHOSPHORUS 4.5 MG/DL (2.3-4.5); POTASSIUM 3.8 MMOL/L (3.5-5.1); SODIUM 139 MMOL/L (135-145); TOTAL CARBON DIOXIDE 24.8 MMOL/L (24-32); TOTAL PROTEIN 5.9 G/DL (6.4-8.2); eCRCL 59 ML/MIN; eGFR 86 ML/MIN
[2022-11-19 10:00] VITALS: BP 110/46; PULSE 60; RESP 18; TEMP 97.9; O2SAT 98
--- NOTE | 2022-11-19 15:30 | NUR ---
Problems reprioritized. Patient report given, questions answered & plan of care reviewed with Karol at [facility].
[2022-11-20] MEDS ORDERED: VANCOMYCIN LEVEL IV ONE (00:30)
== END 2022-11-19 16:30 | DRG 330 ==
LOC: UNDOADMIN 11-03 05:58 → PAS IN 11-03 05:58 → ORTHO 4S 11-03 11:48
PROVIDERS: ADMIT Surgery; ATTEND Surgery
PROC: 0DNU3ZZ Release Omentum, Percutaneous Approach (ICD-10-PCS; 2022-11-03)
PROC: 8E0W4CZ Robotic Assisted Procedure of Trunk Region, Percutaneous Endoscopic Approach (ICD-10-PCS; 2022-11-03)
PROC: 0DTF4ZZ Resection of Right Large Intestine, Percutaneous Endoscopic Approach (ICD-10-PCS; principal; 2022-11-03 07:37)
PROC: 05HY33Z Insertion of Infusion Device into Upper Vein, Percutaneous Approach (ICD-10-PCS; 2022-11-10)
PROC: BW211ZZ Computerized Tomography (CT Scan) of Abdomen and Pelvis using Low Osmolar Contrast (ICD-10-PCS; 2022-11-11)
DX: C18.2 Malignant neoplasm of ascending colon (principal); I50.32 Chronic diastolic (congestive) heart failure; T81.42XA Infection following a procedure, deep incisional surgical site, initial encounter; K56.600 Partial intestinal obstruction, unspecified as to cause; K66.0 Peritoneal adhesions (postprocedural) (postinfection); G40.909 Epilepsy, unspecified, not intractable, without status epilepticus; I27.81 Cor pulmonale (chronic); I48.0 Paroxysmal atrial fibrillation; F32.A Depression, unspecified; I11.0 Hypertensive heart disease with heart failure; E66.9 Obesity, unspecified; Y83.8 Other surgical procedures as the cause of abnormal reaction of the patient, or of later complication, without mention of misadventure at the time of the procedure; Z68.38 Body mass index [BMI] 38.0-38.9, adult; Z88.2 Allergy status to sulfonamides; Z88.0 Allergy status to penicillin; Z88.1 Allergy status to other antibiotic agents; Z79.82 Long term (current) use of aspirin; Z79.899 Other long term (current) drug therapy; Y92.89 Other specified places as the place of occurrence of the external cause; Z83.3 Family history of diabetes mellitus
CPT/HCPCS: 36415; 36569; 74018; 74177; 76942; 80048; 80053; 80202; 82565; 82948; 83036; 83735; 83880; 84100; 84132; 84134; 84145; 84478; 84484; 85025; 86885; 86900; 86901; 87070; 87075; 87076; 87077; 87081; 87185; 87186; 87324; 87449; 88305; 88309; 88331; 93005; 93306; 93971; 97110; 97116; 97162; 97530; 97535; A4215; A4615; A4618; A4620; A6250; A6253; A6258; A6449; C1751; C9113; C9290; G0378; J0360; J0694; J1100; J1170; J1650; J1815; J1885; J1940; J1953; J2250; J2270; J2405; J2704; J2765; J3010; J3370; J3480; J3490; J7030; J7060; J7120; Q0163; Q9963; Q9967

== ENCOUNTER 2024-10-29 15:43 | Emergency (ER) | payer MEDICARE, MEDICAID ==
[~2024-10-29] VITALS: Ht 160 cm; Wt 105.5 kg
[~2024-10-29 15:43] MED LIST changes: -ASPI81TA52 PO; +ATOR20TA66 PO; +CHOL4POW4 PO; +CLIN-224 PO; +CYCL1DRO18 EACHEYE; -DULO-31 PO; -FLEC50TA28 PO; +LEVE750T PO; -LEVE750T66 PO; -LORA-657 PO; -MELO-100 PO; -TOPI200T16 PO
[2024-10-29 15:57] VITALS: TEMP 97.5
--- NOTE | 2024-10-29 17:17 | Physician Documentation ---
History of Present Illness ~ Chief Complaint: Bite-insect Stated Complaint: SPIDER BIT Time Seen by MD: 17:11 Primary Medical Doctor: none HPI Patient is seen today with complaints of a rash of her right forearm that is quite pruritic. She states it is symptoms started a couple of days ago. She states she has been on clindamycin for two weeks now. She admits to an allergy to erythromycin. She had a pacemaker placed few weeks ago in his been on clindamycin now for a couple of weeks treating a superficial skin infection. Patient however states the pacemaker infection is resolved and she is finishing the clindamycin tomorrow. She has no other concern or complaint at this time. Tetanus within 5 years?: No Medication Reconciliation Allergies: Coded Allergies: Penicillins (Verified Allergy, Severe, CAN TAKE KEFLEX, 10/29/24) Sulfa (Sulfonamide Antibiotics) (Verified Allergy, Unknown, 10/29/24) erythromycin base (Verified Allergy, Unknown, 10/29/24) tetracycline (Verified Allergy, Unknown, 10/29/24) Scheduled Atorvastatin Calcium (Atorvastatin Calcium), 20 MG PO DAILY Carvedilol (Carvedilol), 3.125 MG PO Q12H, (Reported) Cholecalciferol (Vitamin D3) (Vitamin D3), 2,000 UNIT PO DAILY, (Reported) Cholestyramine/Sucrose (Cholestyramine Packet), 1 PKT PO BID, (Reported) Clindamycin HCL* (Clindamycin HCL*), 1 CAP PO Q8H Cyclosporine (Cyclosporine), 1 DROP EACHEYE DAILY, (Reported) Enalapril Maleate* (Vasotec*), 5 MG PO QAM, (Reported) Enalapril Maleate* (Vasotec*), 2.5 MG PO QPM, (Reported) Levetiracetam (Levetiracetam), 750 MG PO DAILY, (Reported) Review of Systems Constitutional: Denies: chills, fever, weakness Eyes: Denies: pain, blurred vision ENT: Denies: ear pain, nose pain, throat pain, mouth pain Respiratory: Denies: cough, shortness of breath Cardiovascular: Denies: chest pain, palpitations Gastrointestinal: Denies: abdominal pain, nausea, vomiting Genitourinary: Denies: burning, dysuria Female Genitalia: Denies: vaginal discharge, pelvic pain Neurological: Denies: headache, dizziness Musculoskeletal: Denies: pain, swelling Integumentary: Denies: rash, lesions Allergic/Immunologic: Denies: hives, itching Hematologic/Lymphatic: Denies: no symptoms reported Psychiatric: Denies: depression, anxiety Physical Exam Vital Signs: Temperature: 97.5, Source: Temporal, Heart Rate: 69, Respiratory Rate: 16, BP: 163/70, Pulse Oximetry: 98, Weight: 105.500 Oxygen Flow Rate: 0 Physical Exam General: Awake and Alert, no acute distress. HEENT: Conjunctiva pink, Sclera clear, Mucus Membranes moist. Neck: Supple without masses and tenderness. Resp: Unlabored. Lungs clear to auscultation bilaterally. Extremities: No cyanosis,clubbing or edema. Skin: Patient on exam has two skin lesions the volar aspect of right forearm highly consistent with hives. Patient has no purulent drainage and no significant tenderness to palpation. Progress Results/Orders Results/Orders Vital Signs 10/29/24 15:57 Temp 97.5 Pulse 69 Resp 16 B/P (MAP) 163/70 Pulse Ox 98 O2 Flow Rate 0 Medical Decision Making Findings Patient is seen today with complaints of a rash of her right forearm that is cali te pruritic. She states it is symptoms started a couple of days ago. She states she has been on clindamycin for two weeks now. She admits to an allergy to erythromycin. She had a pacemaker placed few weeks ago in his been on clindamycin now for a couple of weeks treating a superficial skin infection. Patient however states the pacemaker infection is resolved and she is finishing the clindamycin tomorrow. She has no other concern or complaint at this time. Patient was given triamcinolone topical cream to be applied twice daily for 7-14 days. Patient will follow up with primary care in 3-5 days if no better as needed sooner. Return to ED with any worsening, concerning or changing symptoms. Departure Disposition: 01 HOME / SELF CARE / HOMELESS Impression: Primary Impression: Insect bites Qualified Codes: S50.861A - Insect bite (nonvenomous) of right forearm, initial encounter; W57.XXXA - Bitten or stung by nonvenomous insect and other nonvenomous arthropods, initial encounter Condition: Stable Discharge Instructions: Insect Bite, Adult, [id number] Additional Instructions: Patient was given triamcinolone topical cream to be applied twice daily for 7-14 days. Patient will follow up with primary care in 3-5 days if no better as needed sooner. Return to ED with any worsening, concerning or changing symptoms. Referrals: NO PRIMARY CARE PROVIDER (PCP) Prescriptions Triamcinolone Acetonide 0.5% Crm* (Kenalog 0.5% Crm*) 15 Gm Tube 1 APPLIC TOP Q12H for 14 Days, #15 GM apply to affected area(s) Prov: HUSSAIN GORDILLO PAC 10/29/24 Signature Scribe Signature: No scribe Attestation: No scribe HUSSAIN GORDILLO PAC Oct 29, 2024 17:17
[2024-10-29] MEDS ORDERED: TRIA15CR61 TOP (17:22)
[2024-10-29 17:54] VITALS: BP 154/87; PULSE 60; RESP 18; O2SAT 100
== END 2024-10-29 17:57 | disposition home or self-care (01) ==
LOC: ER 15:43
DX: S50.861A Insect bite (nonvenomous) of right forearm, initial encounter (principal); Z88.0 Allergy status to penicillin; Z88.2 Allergy status to sulfonamides; Z95.0 Presence of cardiac pacemaker; W57.XXXA Bitten or stung by nonvenomous insect and other nonvenomous arthropods, initial encounter; Y93.89 Activity, other specified; Y92.89 Other specified places as the place of occurrence of the external cause; Y99.8 Other external cause status
CPT/HCPCS: 99283